=== PATIENT | female | born 1955 | race Two or more races ===

== ENCOUNTER 2024-09-25 14:11 | Inpatient (IN) | payer OTHER ==
[~2024-09-25] VITALS: Ht 177.8 cm; Wt 61.8 kg
--- NOTE | 2024-09-25 14:31 | ED.PDOC ---
HPI Comments HPI: This is a 68 year old female presenting to the ED with chief complaint of generalized weakness and syncope. Patient reports that she has been experiencing generalized weakness for the past few days, however, last night she experience associated nausea, cold sweats, and a syncopal episode while sitting. Patient relays that she did not fall when she was unconscious for a few minutes. Patient states she received a call from Dr[facility] regarding recent lab work dr holloway a week ago. Patient notes she was told her Sodium was at 121 and advised to come to the ED for further evaluation. Patient denies any chest pain, SOB, dizziness, N/V/D, abdominal pain, or fever. Initial Vitals BP: 176/52 HR: 58 RR: 16 O2: 97% Temp: 98F Past Medical History: HTN Past Surgical History: C-Spine surgery Social History: Denies ETOH, smoking, and drug use. Medications: Amlodipine Allergies: NKDA HPI: Poor Historian. REVIEW OF SYSTEMS: CONSTITUTIONAL: Denies acute: fever, diaphoresis, chills, HEAD: Denies acute: headache, photophobia Eyes: Denies acute: Double vision, vision loss, eye pain, eye discharge. EARS: Denies acute: tinnitus, hearing loss, ear discharge, ear pain, THROAT: Denies acute: sore throat, swelling, difficulty swallowing , pain with swallowing, change in voice. NECK: Denies acute: neck pain, neck swelling, stiff neck. HEART: Denies acute : chest pain, palpitations, LUNGS: Denies acute: SOB, wheezing, cough, hemoptysis ABDOMEN: Denies acute: abdominal pain, Vomiting, diarrhea, melena , hematemesis, hematochezia SKIN: Denies acute: rash, redness, lesions, itchiness. EXTREMITIES: Denies acute: calf pain, numbness, tingling, weakness, denies pain in extremity. Denies acute: Low back pain. Neuro: Denies acute: focal neurological deficit, motor or sensory focal neurological deficit, tremors, seizure like activity, confusion, change in mental status, loss of bowel or bladder function, cauda equina like symptoms. : Denies acute: dysuria, hematuria, flank pain, increase in urinary frequency. PSYCH: Denies acute: hallucination, suicidal ideation, homicidal ideation. FEMALE: Denies acute: abnormal vaginal bleeding, foul odor, unusual discharge. PHYSICAL EXAM: General: -----[id number]---acute distress, awake and alert. Head: normocephalic, atraumatic. Neck: supple, trachea is midline, no swelling. Throat: Normal phonation. Eyes:, no erythema, no purulent discharge, no proptosis, no icterus. Heart: regular rate, regular rhythm, no significant murmur appreciated. Lungs: no apparent respiratory distress, Able to speak in full sentences. No wheezing, no rhonchi, no crackles. No stridors Clear to auscultation bilaterally. Abdomen: non tender to palpation, non distended, soft, no guarding, no rebound, + bowel sounds. Neuro: Awake, Alert, oriented to name, self, situation, follows commands GCS=15. Speech is normal. Skin: no petechia, no purpura, no cyanosis, non-pale, not jaundice. Lower extremities: --no - Pitting edema no deformity, no focal swelling, no calf TTP. Makes eye contact. moves all four extremities. Face: no apparent facial droop. Ambulating in the ED independently. ED COURSE: Time Seen by MD: 14:28 Reviewed Notes: Medications, Allergies Allergies: Coded Allergies: Iodine (Verified Allergy, Mild, 09/25/24) Penicillins (Verified Allergy, Mild, 09/25/24) Home Meds Active Scripts Furosemide (Furosemide) 20 Mg Tab, 20 MG PO DAILY for 30 Days, #30 TAB Prov:TIP AGOSTO Evan ENGRAVING SUPERVISOR 09/28/24 Sodium Chloride (SODIUM CHLORIDE) 1 Gm Tab, 1 GM PO DAILY for 30 Days, #30 TAB Prov:TIP AGOSTO Evan ENGRAVING SUPERVISOR 09/28/24 Carvedilol (COREG) 3.125 Mg Tab, 3.125 MG PO BID for 30 Days, #60 TAB Prov:TIP AGOSTO Evan ENGRAVING SUPERVISOR 09/28/24 Reported Medications Mirtazapine (REMERON) 30 Mg Tab, 10 MG OR QPM, TAB 09/26/24 Quetiapine Fumerate (QUETIAPINE FUMARATE) 25 Mg Tab, 1 TAB PO QHSP PRN for insomnia 09/25/24 Cyanocobalamin (Vitamin B-12) 1,000 Mcg Tab, 1 TAB PO DAILY 09/25/24 Gabapentin (Gabapentin) 300 Mg Cap, 1 CAP PO BIDPRN PRN for pain 09/25/24 Folic Acid (Folic Acid) 1 Mg Tab, 1 TAB PO DAILY 09/25/24 Sacubitril-Valsartan (Entresto 97-103 mg) 1 Tab Tab, 1 TAB PO BID 09/25/24 Amlodipine Besylate (Amlodipine Besylate) 5 Mg Tab, 1 TAB PO DAILY 09/25/24 Discontinued Reported Medications Hydrochlorothiazide (Hydrochlorothiazide) 12.5 Mg Cap, 1 CAP PO DAILY for blood pressure 09/25/24 Carvedilol (Carvedilol) 12.5 Mg Tab, 1 TAB PO BID 09/25/24 Information Source: Patient Mode of Arrival: Ambulatory EKG EKG : Pulse Rate (adult): 59 [place]: Normal Cardiac Rhythm: NSR Block: None Hypertrophy: None ST: Normal Comments T-Wave inversion noted to V1, V2, and V3 Was a procedure done? Was a procedure done?: No CP Differential Dx Differential Diagnosis: Other, N/A Comment Includes but not limited to thyroid disease, encephalopathy, electrolyte abnormality, sepsis, infection, intracranial pathology, drug adverse effects, arrhythmia, kidney insufficiency, ACS, CVA, malignancy, anemia X-Ray, Labs, Meds, VS Vital Signs Date Time Temp Pulse Resp B/P (MAP) Pulse Ox O2 Delivery O2 Flow Rate FiO2 09/25/24 16:29 98.9 52 14 148/37 (74) 96 98.9 09/25/24 16:29 52 14 96 Room Air* 0 21 09/25/24 16:28 55 09/25/24 14:41 59 09/25/24 14:37 59 09/25/24 14:30 98.0 58 16 176/52 (93) 97 98.0 Lab Test 09/25/24 15:57 09/25/24 14:50 09/25/24 14:30 Range/Units Troponin I High Sensitivity 13 7 </=34 ng/L White Blood Count 6.4 4.4-10.8 10^3/uL Red Blood Count 4.43 4.0-5.20 10^6/uL Hemoglobin 14.1 12.2-16.2 g/dL Hematocrit 41.0 36.0-46.0 % Mean Corpuscular Volume 92.4 80.0-100.0 fL Mean Corpuscular Hemoglobin 31.9 28.0-32.0 pg Mean Corpuscular Hemoglobin Concent 34.5 32.0-36.0 g/dL Red Cell Distribution Width 13.6 11.8-14.3 % Platelet Count 247 140-450 10^3/uL Mean Platelet Volume 7.4 6.9-10.8 fL Neutrophils (%) (Auto) 71.4 37.0-80.0 % Lymphocytes (%) (Auto) 17.8 10.0-50.0 % Monocytes (%) (Auto) 8.7 0.0-12.0 % Eosinophils (%) (Auto) 1.6 0.0-7.0 % Basophils (%) (Auto) 0.5 0.0-2.0 % Neutrophils # (Auto) 4.6 1.6-8.6 10 ^3/uL Lymphocytes # (Auto) 1.1 0.4-5.4 10 ^3/uL Monocytes # (Auto) 0.6 0-1.3 10 ^3/uL Eosinophils # (Auto) 0.1 0-0.8 10 ^3/uL Basophils # (Auto) 0 0-0.2 10 ^3/uL Nucleated Red Blood Cells 0.0 % Sodium Level 114 *L 136-145 mmol/L Potassium Level 3.9 3.5-5.1 mmol/L Chloride Level 81 L 98-107 mmol/L Carbon Dioxide Level 16 L 20-31 mmol/L Anion Gap 17 H 5-15 Blood Urea Nitrogen 6 L 9-23 mg/dL Creatinine 0.57 0.550-1.02 mg/dL Glomerular Filtration Rate Calc 100 >90 mL/min BUN/Creatinine Ratio 10.5 10.0-20.0 Serum Glucose 110 H 74-106 mg/dL Lactic Acid Level 2.7 *H 0.4-2.0 mmol/L Calcium Level 9.6 8.7-10.4 mg/dL Magnesium Level 2.1 1.6-2.6 mg/dL Total Bilirubin 0.6 0.2-1.0 mg/dL Aspartate Amino Transferase (AST) 25 0-34 U/L Alanine Aminotransferase (ALT) 14 7-40 U/L Alkaline Phosphatase 111 46-116 U/L Total Protein 8.0 5.7-8.2 g/dL Albumin 5.0 H 3.2-4.8 g/dL Urine Color Colorless Yellow Urine Clarity Clear Clear Urine pH 6.5 5.0-9.0 Urine Specific [place] 1.003 1.001-1.035 Urine Protein Trace H Negative Urine Ketones Negative Negative Urine Blood Negative Negative /uL Urine Nitrite Negative Negative Urine Bilirubin Negative Negative Urine Urobilinogen Normal Negative mg/dL Urine Leukocyte Esterase Negative Negative /uL Urine RBC <1 0 - 4 /hpf Urine Microscopic WBC 2 0-5 /HPF Urine Squamous Epithelial Cells None seen <5 /hpf Urine Bacteria Few H None Seen /hpf Urine Glucose Normal Normal mg/dL Time of 1ST Reevaluation: 15:28 Reevaluation 1ST: Unchanged Patient Education/Counseling: Diagnosis, Treatment Family Education/Counseling: No Family Present Comments Patient presented with the above HPI.--generalized weakness----workup was initiated. patient was found with the above mentioned diagnosis. the following medications were ordered: please refer to order lists of meds and tests obtained by myself Dr. Jacobson. Patient ED course and VS have been stabilized. Patient has been reassessed in the ED and remained in a stable condition. Pertinent incidental findings were discussed with the patient and/or family. Patient/family voices understanding and is agreeable with plan. Patient has been observed in the ED adequate length of time to insure improvement/stability. Escalation of care considered: Consideration of escalation to observation or admission Patient found with severe hyponatremia. Patient was admitted to ICU. Patient was ADMITTED to the medicine team for further evaluation and treatment of their presentation. All the reports of any imaging studies that were ordered by myself were reviewed by myself. Departure 1 Departure Time of Disposition: 14:34 Impression: Primary Impression: Syncope and collapse Additional Impressions: Hyponatremia Generalized weakness Abnormal finding on CT scan Disposition: ADMITTED INPATIENT Admit to: Tele Condition: Guarded e-Prescriptions Furosemide (Furosemide) 20 Mg Tab 20 MG PO DAILY for 30 Days, #30 TAB Prov: TIP AGOSTO ENGRAVING SUPERVISOR 09/28/24 Sodium Chloride (SODIUM CHLORIDE) 1 Gm Tab 1 GM PO DAILY for 30 Days, #30 TAB Prov: TIP AGOSTO ENGRAVING SUPERVISOR 09/28/24 Carvedilol (COREG) 3.125 Mg Tab 3.125 MG PO BID for 30 Days, #60 TAB Prov: TIP AGOSTO ENGRAVING SUPERVISOR 09/28/24 Discharged With: Self Critical Care Note Critical Care Time?: Yes (55 min-critical care time only) Heart Score Heart Score: Heart Score Response (Comments) Value History Moderate Suspicious 1 EKG Normal 0 Age >65 2 Risk Factors 1 or 2 risk factors 1 Troponin Normal limit 0 Total 4 I personally scribed for AMBROCIO JACOBSON DO ([email or web address]) on 09/25/24 at 14:31. Electronically submitted by Royal Foy ([email or web address]). I personally scribed for AMBROCIO JACOBSON DO ([email or web address]) on 09/25/24 at 14:39. Electronically submitted by Royal Foy ([email or web address]). I personally scribed for AMBROCIO JACOBSON DO ([email or web address]) on 09/25/24 at 14:41. Electronically submitted by Royal Foy ([email or web address]). AMBROCIO JACOBSON DO Sep 25, 2024 14:31
[2024-09-25] MEDS: SODIUM CHLORIDE 0.9% 1,000 ML IV ONE ×2 (14:45→16:52)
[2024-09-25 15:09] LABS: Basophils # (auto) 0 10 ^3/uL (0-0.2); Basophils % (auto) 0.5 % (0.0-2.0); Eosinophils # (auto) 0.1 10 ^3/uL (0-0.8); Eosinophils % (auto) 1.6 % (0.0-7.0); Hemoglobin 14.1 g/dL (12.2-16.2); Lymphocytes # (auto) 1.1 10 ^3/uL (0.4-5.4); Lymphocytes % (auto) 17.8 % (10.0-50.0); Mean Corpuscular Hemoglobin 31.9 pg (28.0-32.0); Mean Corpuscular Hgb Conc. 34.5 g/dL (32.0-36.0); Mean Corpuscular Volume 92.4 fL (80.0-100.0); Monocytes # (auto) 0.6 10 ^3/uL (0-1.3); Monocytes % (auto) 8.7 % (0.0-12.0); Neutrophils # (auto) 4.6 10 ^3/uL (1.6-8.6); Neutrophils % (auto) 71.4 % (37.0-80.0); Platelet Count (auto) 247 10^3/uL (140-450); Red Blood Cells 4.43 10^6/uL (4.0-5.20); Red Cell Distribution Width 13.6 % (11.8-14.3); White Blood Cell 6.4 10^3/uL (4.4-10.8)
--- NOTE | 2024-09-25 15:28 | DVH ---
EXAM: XR Chest, 1 View CLINICAL INDICATION: Syncope and collapse TECHNIQUE: Frontal view of the chest. COMPARISON: None FINDINGS: LUNGS AND PLEURAL SPACES: Unremarkable. No consolidation. No pneumothorax. HEART: Unremarkable. No cardiomegaly. MEDIASTINUM: Unremarkable. Normal mediastinal contour. BONES/JOINTS: Unremarkable. No acute fracture. OTHER FINDINGS: . IMPRESSION: No acute cardiopulmonary process.
[2024-09-25 15:29] LABS: Lactic Acid w/Reflex 2.7 mmol/L (0.4-2.0)
--- NOTE | 2024-09-25 15:32 | DVH ---
CT HEAD WITHOUT CONTRAST Indication: Syncope and collapse EXAM DATE: 09/25/2024 02:59 PM COMPARISON: None TECHNIQUE: CT of the head without intravenous contrast. RADIATION DOSE: CTDIvol: 56 mGy, DLP: 958.5 mGy*cm FINDINGS: There is no intracranial hemorrhage. There is no extra-axial fluid, mass, mass effect or midline shif t. The ventricles are midline and normal in size. Basilar cisterns are patent. Mild periventricular a nd subcortical white chronic microvascular ischemic changes central pontine infarct that appears suba cute to old measuring 9 mm. Mild global cerebral volume loss The paranasal sinuses and mastoids are well-pneumatized. Imaged portion of the orbits are unremarkabl e. IMPRESSION: 1. No intracranial hemorrhage or mass effect. 2. 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 Recommend MRI brain to further evaluate. 3. Mild chronic microvascular ischemic changes. 4. Mild global cerebral volume loss.
[2024-09-25 16:01] LABS: Alanine Aminotransferase 14 U/L (7-40); Alkaline Phosphatase 111 U/L (46-116); Anion Gap 17 (5-15); Aspartate Aminotransferase 25 U/L (0-34); BUN/Creatinine Ratio 10.5 (10.0-20.0); Calcium 9.6 mg/dL (8.7-10.4); Magnesium 2.1 mg/dL (1.6-2.6); Potassium 3.9 mmol/L (3.5-5.1)
[2024-09-25 16:02] LABS: Bilirubin, Total 0.6 mg/dL (0.2-1.0); Blood Urea Nitrogen 6 mg/dL (9-23); Carbon Dioxide 16 mmol/L (20-31); Chloride 81 mmol/L (98-107); Glucose 110 mg/dL (74-106)
[2024-09-25 16:04] LABS: Sodium 114 mmol/L (136-145)
[2024-09-25 16:29] VITALS: PULSE 52; RESP 14; O2SAT 96
[2024-09-25 17:25] LABS: Urine Bacteria FEW /hpf (None Seen); Urine Blood Negative /uL (Negative); Urine Clarity Clear (Clear); Urine Color Colorless (Yellow); Urine Protein, UAD TRACE (Negative); Urine Specific Gravity 1.003 (1.001-1.035); Urine Squamous Epithelial Cell None Seen /hpf (<5); Urine Urobilinogen Normal (Negative); Urine WBC 2 /HPF (0-5); Urine pH 6.5 (5.0-9.0)
[2024-09-25] MEDS ORDERED: ONDANSETRON HCL 4 MG/2 ML VIAL IV PRN (18:00)
[2024-09-25] MEDS ORDERED: NITROGLYCERIN 0.4 MG SL TAB SL PRN (18:00)
[2024-09-25] MEDS ORDERED: MORPHINE SULFATE INJ 2 MG/ml SYRG IV PRN (18:00)
[2024-09-25] MEDS ORDERED: ACETAMINOPHEN 325 MG TAB PO PRN (18:00)
[2024-09-25] MEDS ORDERED: hydrALAZINE HCL 20 MG/ML VL IV PRN (18:00)
[2024-09-25 18:45] LABS: Potassium 4.7 mmol/L (3.5-5.1)
[2024-09-25 18:46] LABS: Anion Gap 11 (5-15); Calcium 9.3 mg/dL (8.7-10.4); Carbon Dioxide 21 mmol/L (20-31)
[2024-09-25 18:51] LABS: Glucose 106 mg/dL (74-106)
[2024-09-25 18:54] LABS: Blood Urea Nitrogen 7 mg/dL (9-23); Chloride 89 mmol/L (98-107); Sodium 121 mmol/L (136-145)
[2024-09-25] MEDS: ASPirin-EC 325mg tab PO ONE (19:07)
[2024-09-25 19:29] VITALS: BP 130/40; PULSE 53; RESP 16; TEMP 98.1; O2SAT 97
[2024-09-25 20:07] VITALS: PULSE 52; RESP 16; O2SAT 97
[2024-09-25 20:40] VITALS: PULSE 53; RESP 18; O2SAT 96
[2024-09-25 21:24] VITALS: BP 127/41; PULSE 54; RESP 17; TEMP 98; O2SAT 100
[2024-09-25] MEDS ORDERED: CYAN100042 PO (21:34)
[2024-09-25] MEDS ORDERED: SACU1TAB4 PO (21:34)
[2024-09-25] MEDS ORDERED: CARV12.544 PO (21:34)
[2024-09-25] MEDS ORDERED: AMLO1TAB22 PO (21:34)
[2024-09-25] MEDS ORDERED: GABA-1250 PO (21:34)
[2024-09-25] MEDS ORDERED: QUET1TAB11 PO (21:34)
[2024-09-25] MEDS ORDERED: HYDR12.59 PO (21:34)
[2024-09-25] MEDS ORDERED: FOLI-119 PO (21:34)
[2024-09-26] VITALS (9 sets, daily range): BP systolic 102–144; BP diastolic 38–66; PULSE 46–55; RESP 16–19; TEMP 97.6–98.7; O2SAT 2–99
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
[2024-09-26 07:18] LABS: Basophils # (auto) 0 10 ^3/uL (0-0.2); Basophils % (auto) 1.1 % (0.0-2.0); Eosinophils # (auto) 0.1 10 ^3/uL (0-0.8); Eosinophils % (auto) 2.2 % (0.0-7.0); Hematocrit 35.5 % (36.0-46.0); Hemoglobin 12.4 g/dL (12.2-16.2); Lymphocytes # (auto) 0.9 10 ^3/uL (0.4-5.4); Mean Corpuscular Hemoglobin 31.9 pg (28.0-32.0); Mean Corpuscular Hgb Conc. 34.8 g/dL (32.0-36.0); Mean Corpuscular Volume 91.5 fL (80.0-100.0); Monocytes # (auto) 0.7 10 ^3/uL (0-1.3); Monocytes % (auto) 16.3 % (0.0-12.0); Neutrophils # (auto) 2.4 10 ^3/uL (1.6-8.6); Neutrophils % (auto) 57.4 % (37.0-80.0); Nucleated Red Blood Cells % 0.2 %; Platelet Count (auto) 263 10^3/uL (140-450); Red Blood Cells 3.88 10^6/uL (4.0-5.20); Red Cell Distribution Width 13.6 % (11.8-14.3); White Blood Cell 4.1 10^3/uL (4.4-10.8)
[2024-09-26 07:28] LABS: Alkaline Phosphatase 88 U/L (46-116); Aspartate Aminotransferase 18 U/L (<34); Bilirubin, Total 0.6 mg/dL (0.2-1.0); Carbon Dioxide 23 mmol/L (20-31); Potassium 3.7 mmol/L (3.5-5.1); Total Protein 6.3 g/dL (5.7-8.2)
[2024-09-26 07:35] LABS: Alanine Aminotransferase 9 U/L (7-40); Anion Gap 8 (5-15); Calcium 8.6 mg/dL (8.7-10.4); Chloride 92 mmol/L (98-107); Glucose 108 mg/dL (74-106); Sodium 123 mmol/L (136-145)
[2024-09-26 07:36] LABS: BUN/Creatinine Ratio 11.3 (10.0-20.0); Blood Urea Nitrogen 6 mg/dL (9-23)
[2024-09-26 07:58] LABS: INR 1.07 (0.9-1.15); Partial Thromboplastin Time 29.9 SEC (24.5-34.5); Prothrombin Time 11.3 sec (9.3-11.8)
[2024-09-26] MEDS ORDERED: SODIUM CHLORIDE 0.9% 1,000 ML IV SCH (08:00)
[2024-09-26 08:28] LABS: Erythrocyte Sedimentation Rate 4 mm/hr (0-20)
[2024-09-26] MEDS: ENOXAPARIN SOD 40 MG/0.4 ML SYRINGE SC SCH (09:31)
[2024-09-26] MEDS: ASPirin 81 mg TAB PO SCH (09:31)
[2024-09-26] MEDS ORDERED: MIRT-94 OR (09:37)
--- NOTE | 2024-09-26 11:00 | DVHPN2 ---
Progress Note - Dictate Date Seen: Sep 26, 2024 Medical Necessity Reason Pt with a Central, PICC or Fol: No vital signs Vital Sign Date Time Temp Pulse Resp B/P (MAP) Pulse Ox O2 Delivery O2 Flow Rate FiO2 09/26/24 09:00 97.6 55 18 144/45 (78) 99 97.6 09/26/24 08:00 Nasal Cannula* 2 28 Total Intake and Output 09/25/24 09/25/24 09/26/24 15:00 23:00 07:00 Intake Total 2000 ml 400 ml Balance 2000 ml 400 ml medications Current Medications Medications Dose Ordered Sig/Cathy Route Start Time Stop Time Status Last Admin Dose Admin Acetaminophen/ Hydrocodone Bitart 1 tab Q4HP PRN PO 09/25/24 18:00 Ondansetron HCl 4 mg Q4HP PRN IV 09/25/24 18:00 Acetaminophen 650 mg Q6HP PRN PO 09/25/24 18:00 Enoxaparin Sodium 40 mg DAILY SC 09/26/24 10:00 09/26/24 09:31 40 MG Nitroglycerin 0.4 mg Q5MINP PRN SL 09/25/24 18:00 Morphine Sulfate 2 mg Q30M PRN IV 09/25/24 18:00 Hydralazine HCl 10 mg Q6HP PRN IV 09/25/24 18:00 Aspirin 81 mg DAILY PO 09/26/24 10:00 09/26/24 09:31 81 MG Atorvastatin Calcium 40 mg HS PO 09/26/24 22:00 objective General Appearance: alert, no distress HEENT: EOMI, PERRLA, normal external inspect of ears, no icterus, no nasal drainage Neck: no carotid bruit, no jugular venous distention (JVD), no lymphadenopathy Chest: normal thorax Respiratory: clear to auscultation, normal air movement Cardiovascular: regular rate and rhythm, no diastolic murmur, no jugular venous distention (JVD), no rub, no systolic murmur Abdominal: soft, no hepatomegaly, no mass, no splenomegaly, no tenderness Genitourinary: grossly normal external Musculoskeletal: no joint tenderness, no swelling Extremities: normal pulses, no calf tenderness, no clubbing, no cyanosis, no edema Skin: no bruising, no jaundice, no rash Neurological: alert, No focal deficit laboratory and microbiology Laboratory Tests 09/26/24 05:35 Test 09/26/24 05:35 Range/Units Serum Glucose 108 H 74-106 mg/dL Problem List 1. Hyponatremia Monitor, nephrology consult, lipid panel, daily labs 2. Syncope Monitor, cardiology consult, echocardiogram 3. Possible CVA Monitor, MRI brain, neurology consult 4. Bradycardia Monitor, fluid resuscitation 5. Benign essential HTN Monitor Assessment/Plan Subjective: Patient is awake and alert. Objective: Patient was admitted for hyponatremia. Patient takes HCTZ outpatient. Patient also had a syncopal episode; however, seizure cannot be ruled out. Patient states her describes it as her being unresponsive with her eyes rolled back. Head CT imaging showed possible CVA. MRI is currently pending. Patient also had noted bradycardia findings. Plan: Continue current treatment. Cardiology and nephrology consults. Hyponatremia is improving, most likely related to HCTZ. Neurology consult for syncope evaluation. Rule out CVA. Plan discussed with: Patient, Other TIP AGOSTO NP Sep 26, 2024 11:00
--- NOTE | 2024-09-26 11:01 | DVHHP2 ---
Admitting Diagnosis: Generalized weakness History of Present Illness 68 yo female patient c/o generalized weakness x a couple days and syncope. Patient reports having nausea and chills last night before syncope. Patient also reports that she had lab work done last week and received a call from her doctor tell her to report to the ER due to having a sodium of 121. While in the emergency department the patient was evaluated by the provider, As per provider: Labs, vital signs, and imagining monitored. Patient will be admitted for further evaluation and treatment. I discussed admission with the patient/family and is in agreement to treatment plan. Patient Family History: FH: brain cancer G8 SISTER Hypertension G8 MOTHER G8 FATHER Allergies: Coded Allergies: Iodine (Verified Allergy, Mild, 09/25/24) Penicillins (Verified Allergy, Mild, 09/25/24) Home Meds Reported Medications Mirtazapine (REMERON) 30 Mg Tab, 10 MG OR QPM, TAB 09/26/24 Quetiapine Fumerate (QUETIAPINE FUMARATE) 25 Mg Tab, 1 TAB PO QHSP PRN for insomnia 09/25/24 Cyanocobalamin (Vitamin B-12) 1,000 Mcg Tab, 1 TAB PO DAILY 09/25/24 Gabapentin (Gabapentin) 300 Mg Cap, 1 CAP PO BIDPRN PRN for pain 09/25/24 Hydrochlorothiazide (Hydrochlorothiazide) 12.5 Mg Cap, 1 CAP PO DAILY for blood pressure 09/25/24 Folic Acid (Folic Acid) 1 Mg Tab, 1 TAB PO DAILY 09/25/24 Carvedilol (Carvedilol) 12.5 Mg Tab, 1 TAB PO BID 09/25/24 Sacubitril-Valsartan (Entresto 97-103 mg) 1 Tab Tab, 1 TAB PO BID 09/25/24 Amlodipine Besylate (Amlodipine Besylate) 5 Mg Tab, 1 TAB PO DAILY 09/25/24 Current Medications Current Medications Medications (Trade) Dose Ordered Sig/Cathy Route PRN Reason Start Time Stop Time Status Last Admin Acetaminophen/ Hydrocodone Bitart ([place] 5/325MG Tab) 1 tab Q4HP PRN PO MODERATE PAIN (4-6 PAIN SCALE) 09/25/24 18:00 Ondansetron HCl (Zofran) 4 mg Q4HP PRN IV NAUSEA / VOMITING 09/25/24 18:00 Acetaminophen (Tylenol Tablet) 650 mg Q6HP PRN PO PAIN SCALE 1-3 OR TEMP>100.4 09/25/24 18:00 Enoxaparin Sodium (Lovenox) 40 mg DAILY SC 09/26/24 10:00 09/26/24 09:31 Nitroglycerin (Ntrostat Sublingual) 0.4 mg Q5MINP PRN SL FOR CHEST PAIN 09/25/24 18:00 Morphine Sulfate 2 mg Q30M PRN IV FOR CHEST PAIN 09/25/24 18:00 Hydralazine HCl (Apresoline Injection) 10 mg Q6HP PRN IV SBP>150 09/25/24 18:00 Aspirin 81 mg DAILY PO 09/26/24 10:00 09/26/24 09:31 Atorvastatin Calcium (Lipitor) 40 mg HS PO 09/26/24 22:00 Sodium Chloride 1,000 ml @ 80 mls/hr [id number] IV 09/26/24 08:00 09/26/24 07:45 DC Amlodipine Besylate (Norvasc Tablet) 5 mg DAILY PO 09/27/24 10:00 Carvedilol (Coreg Tablet) 12.5 mg BID PO 09/26/24 22:00 Gabapentin (Neurontin Capsule) 300 mg BIDPRN PRN PO pain 09/26/24 12:30 Mirtazapine (Remeron Tablet) 15 mg QPM PO 09/26/24 18:00 Quetiapine Fumarate (SEROquel TABLET) 25 mg QHSP PRN PO insomnia 09/26/24 12:30 Folic Acid 1 mg DAILY PO 09/27/24 10:00 09/26/24 17:33 DC Patient Own Medication 1 tab BID PO 09/26/24 22:00 Thiamine HCl 100 mg DAILY IV 09/27/24 10:00 Folic Acid 1 mg/ Dextrose 50.2 ml @ 200.8 mls/ hr DAILY INJ 09/27/24 10:00 Review of Systems Constitutional: denies chills, denies fever, denies malaise Eyes: denies eye pain, denies vision change ENT: denies ear pain, denies headache, denies nasal congestion, denies painful swallowing, denies voice change Cardiovascular: denies chest pain, denies edema, denies orthopnea, denies palpitations, denies paroxysmal nocturnal dyspnea Respiratory: denies cough, denies shortness of breath Gastrointestinal: denies constipation, denies diarrhea, denies nausea, denies vomiting Genitourinary: denies dysuria, denies frequent urination, denies urethral discharge Musculoskeletal: denies back pain, denies joint pain, denies muscle pain Skin: denies bruising, denies itching, denies rash Neurological: denies focal weakness, denies headache, denies sensory changes Psychiatric: denies anxiety, denies depression Endocrine: denies polydipsia, denies polyuria Hematologic/Lymphatic: denies easy bleeding, denies easy bruising, denies enlarged lymph nodes Allergic/Immunologic: denies allergy, denies hives Vital Signs Vital Signs Date Time Temp Pulse Resp B/P (MAP) Pulse Ox O2 Delivery O2 Flow Rate FiO2 09/26/24 17:13 98.7 50 19 125/39 (67) 96 98.7 09/26/24 08:00 Nasal Cannula* 2 28 Physical Exam General Appearance: alert, no distress HEENT: EOMI, PERRLA, normal external inspect of ears, no icterus, no nasal drainage Neck: no carotid bruit, no jugular venous distention (JVD), no lymphadenopathy Chest: normal thorax Respiratory: clear to auscultation, normal air movement Cardiovascular: regular rate and rhythm, no diastolic murmur, no jugular venous distention (JVD), no rub, no systolic murmur Abdominal: soft, no hepatomegaly, no mass, no splenomegaly, no tenderness Genitourinary: grossly normal external Musculoskeletal: no joint tenderness, no swelling Extremities: normal pulses, no calf tenderness, no clubbing, no cyanosis, no edema Skin: no bruising, no jaundice, no rash Neurological: alert, No focal deficit Results Labs Test 09/26/24 05:35 09/26/24 00:00 09/25/24 18:15 09/25/24 14:50 Range/Units White Blood Count 4.1 #L 4.4-10.8 10^3/uL Red Blood Count 3.88 L 4.0-5.20 10^6/uL Hemoglobin 12.4 12.2-16.2 g/dL Hematocrit 35.5 #L 36.0-46.0 % Mean Corpuscular Volume 91.5 80.0-100.0 fL Mean Corpuscular Hemoglobin 31.9 28.0-32.0 pg Mean Corpuscular Hemoglobin Concent 34.8 32.0-36.0 g/dL Red Cell Distribution Width 13.6 11.8-14.3 % Platelet Count 263 140-450 10^3/uL Mean Platelet Volume 7.7 6.9-10.8 fL Neutrophils (%) (Auto) 57.4 37.0-80.0 % Lymphocytes (%) (Auto) 23.0 10.0-50.0 % Monocytes (%) (Auto) 16.3 H 0.0-12.0 % Eosinophils (%) (Auto) 2.2 0.0-7.0 % Basophils (%) (Auto) 1.1 0.0-2.0 % Neutrophils # (Auto) 2.4 1.6-8.6 10 ^3/uL Lymphocytes # (Auto) 0.9 0.4-5.4 10 ^3/uL Monocytes # (Auto) 0.7 0-1.3 10 ^3/uL Eosinophils # (Auto) 0.1 0-0.8 10 ^3/uL Basophils # (Auto) 0 0-0.2 10 ^3/uL Nucleated Red Blood Cells 0.2 % Erythrocyte Sedimentation Rate 4 0-20 mm/hr Prothrombin Time 11.3 9.3-11.8 sec Prothrombin Time INR 1.07 0.9-1.15 Activated Partial Thromboplast Time 29.9 24.5-34.5 SEC Sodium Level 123 L 136-145 mmol/L Potassium Level 3.7 3.5-5.1 mmol/L Chloride Level 92 L 98-107 mmol/L Carbon Dioxide Level 23 20-31 mmol/L Anion Gap 8 5-15 Blood Urea Nitrogen 6 L 9-23 mg/dL Creatinine 0.53 L 0.550-1.02 mg/dL Glomerular Filtration Rate Calc 101 >90 mL/min BUN/Creatinine Ratio 11.3 10.0-20.0 Serum Glucose 108 H 74-106 mg/dL Serum Osmolality 264 L 278-298 mOsm/kg Calcium Level 8.6 L 8.7-10.4 mg/dL Total Bilirubin 0.6 0.2-1.0 mg/dL Aspartate Amino Transferase (AST) 18 <34 U/L Alanine Aminotransferase (ALT) 9 7-40 U/L Alkaline Phosphatase 88 46-116 U/L C-Reactive Protein High Sensitivity 0.47 <1.0 mg/dL Total Protein 6.3 5.7-8.2 g/dL Albumin 4.0 3.2-4.8 g/dL Triglycerides Level 37 < 150 mg/dL Cholesterol Level 163 < 200 mg/dL LDL Cholesterol 29 < 100 mg/dL HDL Cholesterol 94 H 40-59 mg/dL Thyroid Stimulating Hormone (TSH) 1.16 0.55-4.78 uIU/mL Urine Osmolality 368 mOsm/kg Urine Creatinine 67.20 30.0-125.0 mg/dL Urine Sodium 39 L 40-220 mmol/L Lactic Acid Level 1.2 0.4-2.0 mmol/L Troponin I High Sensitivity 17 </=34 ng/L Magnesium Level 2.1 1.6-2.6 mg/dL Test 09/25/24 14:30 Range/Units Urine Color Colorless Yellow Urine Clarity Clear Clear Urine pH 6.5 5.0-9.0 Urine Specific [place] 1.003 1.001-1.035 Urine Protein Trace H Negative Urine Ketones Negative Negative Urine Blood Negative Negative /uL Urine Nitrite Negative Negative Urine Bilirubin Negative Negative Urine Urobilinogen Normal Negative mg/dL Urine Leukocyte Esterase Negative Negative /uL Urine RBC <1 0 - 4 /hpf Urine Microscopic WBC 2 0-5 /HPF Urine Squamous Epithelial Cells None seen <5 /hpf Urine Bacteria Few H None Seen /hpf Urine Glucose Normal Normal mg/dL Plan 1. Hyponatremia Monitor, nephrology consult, lipid panel, daily labs 2. Syncope Monitor, cardiology consult, echocardiogram 3. Possible CVA Monitor, MRI brain, neurology consult 4. Bradycardia Monitor, fluid resuscitation 5. Benign essential HTN Monitor Plan discussed with: Patient, Other TRINYTIPBHAVYA Gordon NP Sep 26, 2024 11:01
--- NOTE | 2024-09-26 11:45 | DVHINCON2 ---
Date of service: Sep 26, 2024 Reason for Consultation Hyponatremia History of Present Illness 68-year-old female past medical history of hypertension and degenerative disc disease was sent to the hospital by primary medical doctor due to abnormal serum sodium lab. Per at bedside patient had near syncopal episode with near loss of consciousness. At presentation patient noted to have a serum sodium of 114. Patient is status post IV fluid now currently serum sodium is 123. Patient reports only medication for blood pressure includes amlodipine and hydrochlorothiazide. Patient denies any previous cardiac history, denies any diagnosis of congestive heart failure however does report occasionally has swelling in her legs. Medication reconciliation does show SSRI, Entresto, hydrochlorothiazide Allergies: Coded Allergies: Iodine (Verified Allergy, Mild, 09/25/24) Penicillins (Verified Allergy, Mild, 09/25/24) Home Meds Reported Medications Mirtazapine (REMERON) 30 Mg Tab, 10 MG OR QPM, TAB 09/26/24 Quetiapine Fumerate (QUETIAPINE FUMARATE) 25 Mg Tab, 1 TAB PO QHSP PRN for insomnia 09/25/24 Cyanocobalamin (Vitamin B-12) 1,000 Mcg Tab, 1 TAB PO DAILY 09/25/24 Gabapentin (Gabapentin) 300 Mg Cap, 1 CAP PO BIDPRN PRN for pain 09/25/24 Hydrochlorothiazide (Hydrochlorothiazide) 12.5 Mg Cap, 1 CAP PO DAILY for blood pressure 09/25/24 Folic Acid (Folic Acid) 1 Mg Tab, 1 TAB PO DAILY 09/25/24 Carvedilol (Carvedilol) 12.5 Mg Tab, 1 TAB PO BID 09/25/24 Sacubitril-Valsartan (Entresto 97-103 mg) 1 Tab Tab, 1 TAB PO BID 09/25/24 Amlodipine Besylate (Amlodipine Besylate) 5 Mg Tab, 1 TAB PO DAILY 09/25/24 Current Medications Current Medications Medications (Trade) Dose Ordered Sig/Cathy Route PRN Reason Start Time Stop Time Status Last Admin Acetaminophen/ Hydrocodone Bitart ([place] 5/325MG Tab) 1 tab Q4HP PRN PO MODERATE PAIN (4-6 PAIN SCALE) 09/25/24 18:00 Ondansetron HCl (Zofran) 4 mg Q4HP PRN IV NAUSEA / VOMITING 09/25/24 18:00 Acetaminophen (Tylenol Tablet) 650 mg Q6HP PRN PO PAIN SCALE 1-3 OR TEMP>100.4 09/25/24 18:00 Enoxaparin Sodium (Lovenox) 40 mg DAILY SC 09/26/24 10:00 09/26/24 09:31 Nitroglycerin (Ntrostat Sublingual) 0.4 mg Q5MINP PRN SL FOR CHEST PAIN 09/25/24 18:00 Morphine Sulfate 2 mg Q30M PRN IV FOR CHEST PAIN 09/25/24 18:00 Hydralazine HCl (Apresoline Injection) 10 mg Q6HP PRN IV SBP>150 09/25/24 18:00 Aspirin 81 mg DAILY PO 09/26/24 10:00 09/26/24 09:31 Atorvastatin Calcium (Lipitor) 40 mg HS PO 09/26/24 22:00 Sodium Chloride 1,000 ml @ 80 mls/hr [id number] IV 09/26/24 08:00 09/26/24 07:45 DC Family History: FH: brain cancer G8 SISTER Hypertension G8 MOTHER G8 FATHER Review of Systems Near syncopal episode H&P Exam Vital Signs/I&O Vital Sign Date Time Temp Pulse Resp B/P (MAP) Pulse Ox O2 Delivery O2 Flow Rate FiO2 09/26/24 09:00 97.6 55 18 144/45 (78) 99 97.6 09/26/24 08:00 Nasal Cannula* 2 28 Intake and Output 09/25/24 09/26/24 19:00 07:00 Intake Total 2000 ml 400 ml Balance 2000 ml 400 ml Intake Oral 400 ml IV Total 1000 ml Other 1000 ml # Voids 3 Physical Exam Frail elderly white female Not in overt distress Slow mildly slurred speech due to missing dentures Regular rhythm, bradycardia No murmur No pitting edema Abdomen is soft Labs/Diagnostic Data Labs/Diagnostic Data Laboratory Tests Test 09/26/24 05:35 09/25/24 18:15 09/25/24 15:57 09/25/24 14:50 Range/Units White Blood Count 4.1 #L 6.4 4.4-10.8 10^3/uL Red Blood Count 3.88 L 4.43 4.0-5.20 10^6/uL Hemoglobin 12.4 14.1 12.2-16.2 g/dL Hematocrit 35.5 #L 41.0 36.0-46.0 % Mean Corpuscular Volume 91.5 92.4 80.0-100.0 fL Mean Corpuscular Hemoglobin 31.9 31.9 28.0-32.0 pg Mean Corpuscular Hemoglobin Concent 34.8 34.5 32.0-36.0 g/dL Red Cell Distribution Width 13.6 13.6 11.8-14.3 % Platelet Count 263 247 140-450 10^3/uL Mean Platelet Volume 7.7 7.4 6.9-10.8 fL Neutrophils (%) (Auto) 57.4 71.4 37.0-80.0 % Lymphocytes (%) (Auto) 23.0 17.8 10.0-50.0 % Monocytes (%) (Auto) 16.3 H 8.7 0.0-12.0 % Eosinophils (%) (Auto) 2.2 1.6 0.0-7.0 % Basophils (%) (Auto) 1.1 0.5 0.0-2.0 % Neutrophils # (Auto) 2.4 4.6 1.6-8.6 10 ^3/uL Lymphocytes # (Auto) 0.9 1.1 0.4-5.4 10 ^3/uL Monocytes # (Auto) 0.7 0.6 0-1.3 10 ^3/uL Eosinophils # (Auto) 0.1 0.1 0-0.8 10 ^3/uL Basophils # (Auto) 0 0 0-0.2 10 ^3/uL Nucleated Red Blood Cells 0.2 0.0 % Erythrocyte Sedimentation Rate 4 0-20 mm/hr Prothrombin Time 11.3 9.3-11.8 sec Prothrombin Time INR 1.07 0.9-1.15 Activated Partial Thromboplast Time 29.9 24.5-34.5 SEC Sodium Level 123 L 121 #L 114 *L 136-145 mmol/L Potassium Level 3.7 4.7 3.9 3.5-5.1 mmol/L Chloride Level 92 L 89 L 81 L 98-107 mmol/L Carbon Dioxide Level 23 21 16 L 20-31 mmol/L Anion Gap 8 11 17 H 5-15 Blood Urea Nitrogen 6 L 7 L 6 L 9-23 mg/dL Creatinine 0.53 L 0.54 L 0.57 0.550-1.02 mg/dL Glomerular Filtration Rate Calc 101 101 100 >90 mL/min BUN/Creatinine Ratio 11.3 13.0 10.5 10.0-20.0 Serum Glucose 108 H 106 110 H 74-106 mg/dL Calcium Level 8.6 L 9.3 9.6 8.7-10.4 mg/dL Total Bilirubin 0.6 0.6 0.2-1.0 mg/dL Aspartate Amino Transferase (AST) 18 25 0-34 U/L Alanine Aminotransferase (ALT) 9 14 7-40 U/L Alkaline Phosphatase 88 111 46-116 U/L Total Protein 6.3 8.0 5.7-8.2 g/dL Albumin 4.0 5.0 H 3.2-4.8 g/dL Thyroid Stimulating Hormone (TSH) 1.16 0.55-4.78 uIU/mL Lactic Acid Level 1.2 2.7 *H 0.4-2.0 mmol/L Troponin I High Sensitivity 17 13 7 </=34 ng/L Magnesium Level 2.1 1.6-2.6 mg/dL Test 09/25/24 14:30 Range/Units Urine Color Colorless Yellow Urine Clarity Clear Clear Urine pH 6.5 5.0-9.0 Urine Specific [place] 1.003 1.001-1.035 Urine Protein Trace H Negative Urine Ketones Negative Negative Urine Blood Negative Negative /uL Urine Nitrite Negative Negative Urine Bilirubin Negative Negative Urine Urobilinogen Normal Negative mg/dL Urine Leukocyte Esterase Negative Negative /uL Urine RBC <1 0 - 4 /hpf Urine Microscopic WBC 2 0-5 /HPF Urine Squamous Epithelial Cells None seen <5 /hpf Urine Bacteria Few H None Seen /hpf Urine Glucose Normal Normal mg/dL Assessment 68-year-old female past medical history of hypertension presents to the hospital with a near syncopal episode was diagnosed with hyponatremia. Patient notably also has bradycardia with heart rate in the 50s. Clinically patient appears to be hypo to euvolemic. Hyponatremia History of hypertension Questionable history of congestive heart failure Hold further IV fluids to prevent sodium over-correction Obtain urine osmolarity, urine sodium, serum sodium, Encourage p.o. Cardiology Avoid hypotension No further use of thiazide diuretic in this patient recommend alternative agent s. Plan discussed with: Patient, Spouse FER GARCIA MD Sep 26, 2024 11:45
[2024-09-26 12:16] LABS: CRP High Sensitivity 0.47 mg/dL (<1.0)
[2024-09-26] MEDS ORDERED: GABAPENTIN 300 MG CAP PO PRN (12:30)
--- NOTE | 2024-09-26 12:38 | DVH ---
PROCEDURE: MRI BRAIN HEAD WO CONTRAST Indication: SYNCOPE COMPARISON: 09/25/2024 TECHNIQUE: Multiplanar multisequence images of the brain are obtained. FINDINGS: There is no abnormal diffusion restriction. Mild periventricular and subcortical white matter T2/FLAI R hyperintense changes. 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 Mild global cerebral volume loss. There is no in tracranial hemorrhage. No extra-axial fluid collection, mass effect or midline shift. The ventricles are midline and normal in size. The cisterns are patent. Normal intracranial flow voids are preserved . No abnormal susceptibility signal. The sinuses and mastoids are well pneumatized. The visualized orbits are unremarkable. Cervical fusio n hardware, incompletely characterized. IMPRESSION: 1. No acute cerebrovascular ischemia. 2. Mild chronic microvascular ischemic changes. 3. 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 4. Mild global cerebral volume loss.
--- NOTE | 2024-09-26 15:58 | DVHINCON2 ---
Date of service: Sep 26, [address] Crooks Reason for Consultation Syncope History of Present Illness Ms. Tolliver is a 68 years old right-handed female with a history of hypertension, chronic neck pain status post C-spine surgery, she was brought to the [facility] on 09/25/2024 with a chief company of passing out. At this time, she is alert, oriented x3, but is not a very good historian, after interviewing her, I have also found interviewed her (poor signal), as a result, long time spent before I obtained the following history On 09/25/2024, when she was sitting and watching TV with her , she developed dizziness/lightheadedness, nausea, he started to have code sweating, but the next memory was waking up still sitting up in the chair, confused, with dizziness/lightheadedness, a lot of code sweating. Her related the patient suddenly became nonresponsive, eyes spacing out, followed by the whole-body locked up/, she also stopped breathing, and he started [id number] breathing. The event was about 5 minutes, and she was very confused for 10 minutes after waking up. The patient had alcohol on 09/25/2024 About five years ago, the patient has had a similar passing out but without convulsion or seizure like activity, the patient was seen in the local hospital, both her and her did not remember how the patient was treated, and was diagnosis was given Her gait was normal, she rule out bicycle, but she had poor balance after she was discharged from a hospital 2-3 years ago. They do not remember the reason for hospitalization, but the patient was said to have low-sodium at that time She has a heavy alcohol history (SEE SOCIAL HISTORY) She has slurred speech, both her and the believes this was because of poor dentition CBC, 09/25/2024: Unremarkable ESR, 10/13/24: 4 Sodium, 09/25/2024: 121, 10/13/2024: 123 Liver function tests, 10/13/2024: Normal TG/CHOL/HDL/HDL, 09/26/2024: 37/163/29/94 CT head, 09/25/2024: 1. No intracranial hemorrhage or mass effect. 2. 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 Recommend MRI brain to further evaluate. 3. Mild chronic microvascular ischemic changes. 4. Mild global cerebral volume loss. MRI head, 09/26/2024: 1. No acute cerebrovascular ischemia. 2. Mild chronic microvascular ischemic changes. 3. 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 4. Mild global cerebral volume loss Past Medical History Hypertension, no stroke, no seizure Past Surgical History C-spine surgery Family History: FH: brain cancer G8 SISTER Hypertension G8 MOTHER G8 FATHER Family History Hypertension, Social History She was tobacco smoke, she drinks beers almost daily for 20-30 years, six packs daily Allergies: Coded Allergies: Iodine (Verified Allergy, Mild, 09/25/24) Penicillins (Verified Allergy, Mild, 09/25/24) Home Meds Reported Medications Mirtazapine (REMERON) 30 Mg Tab, 10 MG OR QPM, TAB 09/26/24 Quetiapine Fumerate (QUETIAPINE FUMARATE) 25 Mg Tab, 1 TAB PO QHSP PRN for insomnia 09/25/24 Cyanocobalamin (Vitamin B-12) 1,000 Mcg Tab, 1 TAB PO DAILY 09/25/24 Gabapentin (Gabapentin) 300 Mg Cap, 1 CAP PO BIDPRN PRN for pain 09/25/24 Hydrochlorothiazide (Hydrochlorothiazide) 12.5 Mg Cap, 1 CAP PO DAILY for blood pressure 09/25/24 Folic Acid (Folic Acid) 1 Mg Tab, 1 TAB PO DAILY 09/25/24 Carvedilol (Carvedilol) 12.5 Mg Tab, 1 TAB PO BID 09/25/24 Sacubitril-Valsartan (Entresto 97-103 mg) 1 Tab Tab, 1 TAB PO BID 09/25/24 Amlodipine Besylate (Amlodipine Besylate) 5 Mg Tab, 1 TAB PO DAILY 09/25/24 Current Medications Current Medications Medications (Trade) Dose Ordered Sig/Cathy Route PRN Reason Start Time Stop Time Status Last Admin Acetaminophen/ Hydrocodone Bitart ([place] 5/325MG Tab) 1 tab Q4HP PRN PO MODERATE PAIN (4-6 PAIN SCALE) 09/25/24 18:00 Ondansetron HCl (Zofran) 4 mg Q4HP PRN IV NAUSEA / VOMITING 09/25/24 18:00 Acetaminophen (Tylenol Tablet) 650 mg Q6HP PRN PO PAIN SCALE 1-3 OR TEMP>100.4 09/25/24 18:00 Enoxaparin Sodium (Lovenox) 40 mg DAILY SC 09/26/24 10:00 09/26/24 09:31 Nitroglycerin (Ntrostat Sublingual) 0.4 mg Q5MINP PRN SL FOR CHEST PAIN 09/25/24 18:00 Morphine Sulfate 2 mg Q30M PRN IV FOR CHEST PAIN 09/25/24 18:00 Hydralazine HCl (Apresoline Injection) 10 mg Q6HP PRN IV SBP>150 09/25/24 18:00 Aspirin 81 mg DAILY PO 09/26/24 10:00 09/26/24 09:31 Atorvastatin Calcium (Lipitor) 40 mg HS PO 09/26/24 22:00 Sodium Chloride 1,000 ml @ 80 mls/hr [id number] IV 09/26/24 08:00 09/26/24 07:45 DC Amlodipine Besylate (Norvasc Tablet) 5 mg DAILY PO 09/27/24 10:00 Carvedilol (Coreg Tablet) 12.5 mg BID PO 09/26/24 22:00 Gabapentin (Neurontin Capsule) 300 mg BIDPRN PRN PO pain 09/26/24 12:30 Mirtazapine (Remeron Tablet) 15 mg QPM PO 09/26/24 18:00 Quetiapine Fumarate (SEROquel TABLET) 25 mg QHSP PRN PO insomnia 09/26/24 12:30 Folic Acid 1 mg DAILY PO 09/27/24 10:00 Patient Own Medication 1 tab BID PO 09/26/24 22:00 Review of Systems As above, the other systems are negative Vital Signs Vital Signs Date Time Temp Pulse Resp B/P (MAP) Pulse Ox O2 Delivery O2 Flow Rate FiO2 09/26/24 13:00 98.5 51 19 122/38 (66) 97 98.5 09/26/24 08:00 Nasal Cannula* 2 28 Physical Exam GENERAL EXAM: General: the patient is well developed and nourished. No acute distress. HEENT: Normocephalic, neck is supple, no carotid bruits. No mass. RESPIRATORY: Normal respiratory effort with symmetrical lung expansion. Lungs clear to auscultation. CARDIOVASCULAR: Regular rate and rhythm with no murmurs. S1, S2. ABDOMEN: Soft, nontender, normal bowel sound NEUROLOGICAL: MENTAL STATUS: Awake and alert. Oriented to person, place, time and general circumstances. Poor historian SPEECH, LANGUAGE, HIGHER CORTICAL FUNCTION: no aphasia, mild dysathria. CRANIAL NERVES: #2: Intact visual urbina to confrontation. The optic discs were sharp. #3,4,6: Pupils are equal, round and reactive. EOMs full and conjugate. No nystagmus. #5: Facial sensation intact in all three divisions bilaterally. Mandibular strength intact. #7: Facial muscles symmetrical and strength intact. #8: Hearing grossly normal to voice. #9,10: Uvula and soft palate rise in the midline. Swallow and voice are normal. #11: Trapezius and sternomastoid strength intact bilaterally. #12: Tongue midline. No fasciculations or atrophy. SENSATION: Sensation to touch and pinprick is normal. MOTOR: Normal tone in the upper and lower extremity. Normal muscle bulk. No fasciculations. No abnormal movements or posturing. Muscle strength of the major groups in the upper extremities is 5/5. Muscle strength of the major groups in the lower extremities is 5/5. REFLEXES: Deep tendon reflexes are symmetrical. No pathological reflexes. CEREBELLAR/COORDINATION: Finger to nose is normal bilaterally. GAIT/STATION: deferred Labs/Diagnostic Data Labs Test 09/26/24 05:35 09/26/24 00:00 09/25/24 18:15 09/25/24 14:50 Range/Units White Blood Count 4.1 #L 4.4-10.8 10^3/uL Red Blood Count 3.88 L 4.0-5.20 10^6/uL Hemoglobin 12.4 12.2-16.2 g/dL Hematocrit 35.5 #L 36.0-46.0 % Mean Corpuscular Volume 91.5 80.0-100.0 fL Mean Corpuscular Hemoglobin 31.9 28.0-32.0 pg Mean Corpuscular Hemoglobin Concent 34.8 32.0-36.0 g/dL Red Cell Distribution Width 13.6 11.8-14.3 % Platelet Count 263 140-450 10^3/uL Mean Platelet Volume 7.7 6.9-10.8 fL Neutrophils (%) (Auto) 57.4 37.0-80.0 % Lymphocytes (%) (Auto) 23.0 10.0-50.0 % Monocytes (%) (Auto) 16.3 H 0.0-12.0 % Eosinophils (%) (Auto) 2.2 0.0-7.0 % Basophils (%) (Auto) 1.1 0.0-2.0 % Neutrophils # (Auto) 2.4 1.6-8.6 10 ^3/uL Lymphocytes # (Auto) 0.9 0.4-5.4 10 ^3/uL Monocytes # (Auto) 0.7 0-1.3 10 ^3/uL Eosinophils # (Auto) 0.1 0-0.8 10 ^3/uL Basophils # (Auto) 0 0-0.2 10 ^3/uL Nucleated Red Blood Cells 0.2 % Erythrocyte Sedimentation Rate 4 0-20 mm/hr Prothrombin Time 11.3 9.3-11.8 sec Prothrombin Time INR 1.07 0.9-1.15 Activated Partial Thromboplast Time 29.9 24.5-34.5 SEC Sodium Level 123 L 136-145 mmol/L Potassium Level 3.7 3.5-5.1 mmol/L Chloride Level 92 L 98-107 mmol/L Carbon Dioxide Level 23 20-31 mmol/L Anion Gap 8 5-15 Blood Urea Nitrogen 6 L 9-23 mg/dL Creatinine 0.53 L 0.550-1.02 mg/dL Glomerular Filtration Rate Calc 101 >90 mL/min BUN/Creatinine Ratio 11.3 10.0-20.0 Serum Glucose 108 H 74-106 mg/dL Calcium Level 8.6 L 8.7-10.4 mg/dL Total Bilirubin 0.6 0.2-1.0 mg/dL Aspartate Amino Transferase (AST) 18 <34 U/L Alanine Aminotransferase (ALT) 9 7-40 U/L Alkaline Phosphatase 88 46-116 U/L C-Reactive Protein High Sensitivity 0.47 <1.0 mg/dL Total Protein 6.3 5.7-8.2 g/dL Albumin 4.0 3.2-4.8 g/dL Triglycerides Level 37 < 150 mg/dL Cholesterol Level 163 < 200 mg/dL LDL Cholesterol 29 < 100 mg/dL HDL Cholesterol 94 H 40-59 mg/dL Thyroid Stimulating Hormone (TSH) 1.16 0.55-4.78 uIU/mL Lactic Acid Level 1.2 0.4-2.0 mmol/L Troponin I High Sensitivity 17 </=34 ng/L Magnesium Level 2.1 1.6-2.6 mg/dL Test 09/25/24 14:30 Range/Units Urine Color Colorless Yellow Urine Clarity Clear Clear Urine pH 6.5 5.0-9.0 Urine Specific [place] 1.003 1.001-1.035 Urine Protein Trace H Negative Urine Ketones Negative Negative Urine Blood Negative Negative /uL Urine Nitrite Negative Negative Urine Bilirubin Negative Negative Urine Urobilinogen Normal Negative mg/dL Urine Leukocyte Esterase Negative Negative /uL Urine RBC <1 0 - 4 /hpf Urine Microscopic WBC 2 0-5 /HPF Urine Squamous Epithelial Cells None seen <5 /hpf Urine Bacteria Few H None Seen /hpf Urine Glucose Normal Normal mg/dL Assessment Episodic event Convulsive syncope Alcohol withdrawal seizure Alcoholism 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 Although this document has been carefully reviewed, there may still be some phonetic and typographical errors. These areas are purely typographical due to imperfections of the software programs, and do not reflect any compromise in the patient's medical care. Plan discussed with: Spouse, Other GEORGE DIOP MD Sep 26, 2024 15:58
[2024-09-26 16:14] LABS: Creatinine, Urine 67.2 mg/dL (30.0-125.0)
[2024-09-26] MEDS: FOLIC ACID 1 MG in D5W 5% 50 ML INJ ONE (17:30)
[2024-09-26] MEDS: MIRTAZAPINE 30 MG TAB PO SCH (19:06)
[2024-09-26] MEDS: THIAMINE 100mg/ml INJ (200mg/2ml VIAL) IV ONE (19:07)
[2024-09-26] MEDS: ATORVASTATIN 20 MG TAB PO SCH (20:15)
[2024-09-26] MEDS: CARVEDILOL 12.5 MG TAB PO SCH (20:16)
--- NOTE | 2024-09-26 21:03 | DVH ---
US CAROTID DOPPLER CLINICAL INDICATION: cva TECHNIQUE: Multiple grayscale, color Doppler and spectral Doppler ultrasound images were obtained thr oughout both carotid systems. COMPARISON: None FINDINGS: RIGHT: CCA PSV: 132 cm/s ECA PSV: 160 cm/s ICA PSV: 142 cm/s ICA EDV: 21 cm/s ICA/CCA Ratio: 1 Vertebral artery: Patent, antegrade flow. Calcified plaque at the carotid bifurcation. No significant stenosis on color imaging. Spectral erickson sis demonstrates no hemodynamically significant CCA or ICA stenosis. LEFT: CCA PSV: 112 cm/s ECA PSV: 118 cm/s ICA PSV: 187 cm/s ICA EDV: 19 cm/s ICA/CCA Ratio: 1.7 Vertebral artery: Patent, antegrade flow. Calcified plaque in the carotid bifurcation extending into the left internal carotid artery. No signi ficant stenosis on color imaging. Spectral analysis demonstrates no hemodynamically significant CCA o r ICA stenosis. IMPRESSION: 1. Increased velocity of the left internal carotid artery ( 187 cm/sec) distally which by velocity dow ggests a 50-69% stenosis. 2. Borderline increased velocity of the right internal carotid artery at the mid aspect measuring 142 cm/sec which by velocity suggests 50-69% stenosis. 3. The ICA/CCA Ratio is not elevated and there is no visible stenosis on color imaging, going against hemodynamically significant stenosis.
[2024-09-27] VITALS (9 sets, daily range): BP systolic 130–155; BP diastolic 45–69; PULSE 47–83; RESP 15–18; TEMP 97.8–98.3; O2SAT 2–98
[2024-09-27 06:14] LABS: Potassium 3.9 mmol/L (3.5-5.1)
[2024-09-27 06:15] LABS: Anion Gap 8 (5-15); Carbon Dioxide 24 mmol/L (20-31)
[2024-09-27 06:16] LABS: Calcium 9.8 mg/dL (8.7-10.4)
[2024-09-27 06:20] LABS: Glucose 100 mg/dL (74-106)
[2024-09-27 06:21] LABS: BUN/Creatinine Ratio 12.3 (10.0-20.0)
[2024-09-27 06:29] LABS: Blood Urea Nitrogen 8 mg/dL (9-23); Chloride 96 mmol/L (98-107); Sodium 128 mmol/L (136-145)
[2024-09-27] MEDS: THIAMINE 100mg/ml INJ (200mg/2ml VIAL) IV SCH (09:25)
[2024-09-27] MEDS: HYDROcodone-ACET 5/325MG TAB PO PRN (09:26)
[2024-09-27] MEDS: amLODIPine BESYLATE 5 MG TAB PO SCH (09:27)
--- NOTE | 2024-09-27 09:59 | DVHSR ---
APPROVED REPORT EXAM: LIMITED Two-dimensional and M-mode echocardiogram with Doppler and color Doppler. Blood Pressure: 102/66 mmHg INDICATION Syncope RISK FACTORS Height: 5'10, Weight: 136 DIMENSIONS LVDd4.3 (3.8-5.7cm)LA (2D)3.7 (1.9-4.0cm)Aortic Root2.8 (2.0-3.7cm) LVDs2.3 (2.5-4.0cm)LA (MM) (1.9-4.0cm)Aortic Cusp Exc1.3 (1.5-2.0cm) EF (%) 78.4 (55-70%)Rt. Atrium3.3 (1.9-4.0cm)Asc. Aorta cm IVSd1.1 (0.7-1.1cm)RV (D)4.3 (1.8-2.4cm) PWd1.0 (0.7-1.1cm) Mitral Valve MitralMitral Stenosis E wave1.46m/sMV Mean GR.mmHg A wave0.92m/sMV Peak GR.141mmHg E/A ratio1.62D MVAcm2 DECEL [id number] 1/2 Timems Aortic Valve Aortic ValveAortic Stenosis V11.31m/Neha Mean GR.5mmHg V21.68m/Neha Peak GR.11mmHg LVOT Diameter1.8 (1.8-2.4cm)Doppler AVA1.98cm2 Pulmonic Valve V21.12m/s Tricuspid Valve TR Velocity2.14m/s [id number] Other Information Technically limited study due to large breast implants Conclusion Left ventricle: Left ventricle was normal-sized. Left ventricular systolic function was hyperdynami c. LVEF was around 75%. There was no gross wall motion abnormality. Diastolic function was conside red normal for age. Right ventricle is normal-sized with normal systolic function. Both atria were normal-sized. Aortic valve: Aortic valve was trileaflet. There was no aortic insufficiency/stenosis. There was tr deisi mitral/tricuspid regurgitation. There was trace pulmonary valve insufficiency. Right ventricular systolic pressure was assessed at 22 mm Hg (normal). There was no pericardial effu adrian.
[2024-09-27] MEDS ORDERED: FOLIC ACID 1 MG TAB PO SCH (10:00)
[2024-09-27] MEDS: FOLIC ACID 1 MG in D5W 5% 50 ML INJ SCH (10:00)
--- NOTE | 2024-09-27 10:24 | DVHPN2 ---
Progress Note - Dictate Date Seen: Sep 27, 2024 Medical Necessity Reason Pt with a Central, PICC or Fol: No vital signs Vital Sign Date Time Temp Pulse Resp B/P (MAP) Pulse Ox O2 Delivery O2 Flow Rate FiO2 09/27/24 09:27 53 09/27/24 09:27 113/54 09/27/24 08:10 98.1 15 98 98.1 09/27/24 08:09 Nasal Cannula* 2 28 Total Intake and Output 09/26/24 09/26/24 09/27/24 15:00 23:00 07:00 Intake Total 200 ml 200 ml Balance 200 ml 200 ml medications Current Medications Medications Dose Ordered Sig/Cathy Route Start Time Stop Time Status Last Admin Dose Admin Acetaminophen/ Hydrocodone Bitart 1 tab Q4HP PRN PO 09/25/24 18:00 09/27/24 09:26 1 TAB Ondansetron HCl 4 mg Q4HP PRN IV 09/25/24 18:00 Acetaminophen 650 mg Q6HP PRN PO 09/25/24 18:00 Enoxaparin Sodium 40 mg DAILY SC 09/26/24 10:00 09/27/24 09:25 40 MG Nitroglycerin 0.4 mg Q5MINP PRN SL 09/25/24 18:00 Morphine Sulfate 2 mg Q30M PRN IV 09/25/24 18:00 Hydralazine HCl 10 mg Q6HP PRN IV 09/25/24 18:00 Aspirin 81 mg DAILY PO 09/26/24 10:00 09/27/24 09:25 81 MG Atorvastatin Calcium 40 mg HS PO 09/26/24 22:00 09/26/24 20:15 40 MG Amlodipine Besylate 5 mg DAILY PO 09/27/24 10:00 09/27/24 09:27 5 MG Carvedilol 12.5 mg BID PO 09/26/24 22:00 09/26/24 20:16 12.5 MG Gabapentin 300 mg BIDPRN PRN PO 09/26/24 12:30 Mirtazapine 15 mg QPM PO 09/26/24 18:00 09/26/24 19:06 15 MG Quetiapine Fumarate 25 mg QHSP PRN PO 09/26/24 12:30 Patient Own Medication 1 tab BID PO 09/26/24 22:00 Thiamine HCl 100 mg DAILY IV 09/27/24 10:00 09/27/24 09:25 100 MG Folic Acid 1 mg/ Dextrose 50.2 ml @ 200.8 mls/ hr DAILY INJ 09/27/24 10:00 laboratory and microbiology Laboratory Tests 09/27/24 05:40 09/26/24 05:35 Test 09/27/24 05:40 Range/Units Serum Glucose 100 74-106 mg/dL Assessment/Plan Patient is a 68-year-old female who came to the hospital for abnormal labs. She mentions that her outside PCP called her for an abnormal labs (low sodium) and asked her to go to the hospital. She also mentions that the day before presentation, the patient did feel nauseous and reportedly passed out. She does not remember the episode but mentions that her attempted to revive her also. She is admitted to the hospital with syncope. She mentions generalized weakness for few days prior to presentation. Cardiology is involved for cardiac aspects of care. Patient denies any previous cardiac problem. Denies previous knowledge of any stroke/heart attacks. Denies any previous chest pains. Denies previous evaluation by detailer. It is of note that the CT scan of the head which was performed in the emergency room questioned CVA. Not in acute distress. Sitting in bed. No JVD. Mucosa is pink and wet. No carotid bruit. No goiter. Lungs are clear to auscultation. Not using accessory muscles of breathing. Cardiac: Regular, systolic murmur in the base is heard (2/6). Abdomen is soft. There is no gross mass. There is no gross hepatomegaly. Extremities do not reveal edema. Dorsalis pedis is 2+ bilateral. Past medical history includes hypertension, degenerative disc disease in the neck (status post surgery for it) and degenerative disc disease in lower back. Does have baseline unstable gait (she herself attributes it to the degenerative disc disease). Does have old history of frequency. Occasionally gets leg swellings through the end of the day. He is allergic to penicillin and iodine (has had rash with it). Denies any relevant family history (but hypertension). Quit smoking few years back (after decades of smoking). Drinks beer 4-5 times a week. Stopped substance abuse in her 20s. Sodium: 114 - 121 - 123 - 128 Potassium: 3.9 - 4.7 - 3.7 - 3.9 Creatinine: 0.57 - 0.54 - 0.53 - 0.65 Lactic acid: 2.7 - 1.2 Troponin (high sensitive): 7 - 13 - 17 TSH: 1.16 LDL: 29 CRP: 0.47 U/A: non-revealing Chest x-ray revealed: IMPRESSION: No acute cardiopulmonary process. CT of the head revealed: IMPRESSION: 1. No intracranial hemorrhage or mass effect. 2. 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 Recommend MRI brain to further evaluate. 3. Mild chronic microvascular ischemic changes. 4. Mild global cerebral volume loss. Brain MRI revealed: IMPRESSION: 1. No acute cerebrovascular ischemia. 2. Mild chronic microvascular ischemic changes. 3. 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 4. Mild global cerebral volume loss. Carotid sono revealed: IMPRESSION: 1. Increased velocity of the left internal carotid artery ( 187 cm/sec) distally which by velocity suggests a 50-69% stenosis. 2. Borderline increased velocity of the right internal carotid artery at the mid aspect measuring 142 cm/sec which by velocity suggests 50-69% stenosis. 3. The ICA/CCA Ratio is not elevated and there is no visible stenosis on color imaging, going against hemodynamically significant stenosis. EKG revealed sinus rhythm, biatrial enlargement, questionable old anteroseptal [place], no acute ST-T changes Tele reveals sinus bradycardia. Later revealed sinus rhythm. There have been occasions of 2:1 AV block. Detail review of tele is in favor of type 1 second degree AV block with occasions of 2:1 block. Echocardiogram reported: Left ventricle: Left ventricle was normal-sized. Left ventricular systolic function was hyperdynamic. LVEF was around 75%. There was no gross wall motion abnormality. Diastolic function was considered normal for age. Right ventricle is normal-sized with normal systolic function. Both atria were normal-sized. Aortic valve: Aortic valve was trileaflet. There was no aortic insufficiency/stenosis. There was trace mitral/tricuspid regurgitation. There was trace pulmonary valve insufficiency. Right ventricular systolic pressure was assessed at 22 mm Hg (normal). There was no pericardial effusion. Patient is a 68-year-old female who presented with few days of generalized weakness. Did have an episode of syncope prior to presentation. Does have baseline poor functional capacity and unstable gait. Was found to have hyponatremia as outpatient which slowly has improved since arrival. Lactic acid was elevated on presentation. Presentation questions syncope. ACS is not considered. Cardiac etiology for syncope can not be ruled out. Does have sinus bradycardia which has not been significant yet. Is found to have possible subacute CVA which could have contributed to the clinical picture? MRI ruled out acute CVA. Patient is seen by Neurology and Nephrology. Neurology found alcohol abuse. Echo findings are against heart failure. Tele revealed occasions of second degree AV block and occasions of 2:1 AV block. Detail review is in favor of type 1 second degree AV block and occasions of 2:1 AV block. Patient has been on 12.5 mg of Carvedilol which could have contributed to the above. Echo revealed hyperdynamic LV and is in favor of dehydration contributing to hyponatremia and possible presentation. Patient had been on diuretics as outpatient which could have contributed to above. Nephrology has also advised against diuretics. Syncope Hyponatremia CVA, old Sinus bradycardia Unstable gait Degenerative disc disease Alcohol abuse Seizure disorder? Second degree AV block Cardiac suggestion for management: Manage on telemetry Follow-up electrolytes and kidney function tests and correct abnormalities. Keep potassium above 4 and magnesium above 2 Aspirin: 81 mg daily Atorvastatin: 40 mg at night Echocardiogram findings are against any component of heart failure (even diastolic) for this patient Decrease Carvedilol to 6.25 mg (from 12.5 mg) PO BID Long-term monitor (can be arranged as outpatient) Neurology follow up Nephrology follow up Agree to hold diuretics (suggested by Nephrology) Lifestyle and risk factor modifications Counseled to avoid / decrease alcohol consumption Further evaluation and management depends on the above and clinical course A total of 55 minutes was spent reviewing the patient record, examining the patient, making a diagnostic and therapeutic plan, discussing this plan with medical personnel, following up on diagnostic studies and following the patient for clinical stability excluding any and all procedures. At least 50% of this time was spent in direct, [id number] contact. Thank you for allowing me to participate in this patient's care. Further recommendations will depend on patient's clinical course. Please do not hesitate to contact me if you have any questions or concerns. This medical document was created using electronic medical record system with [employer] dictation system. Although this document has been carefully reviewed, there may still be some phonetic and typographical errors. These areas are purely typographical due to the imperfection of the software programs, and do not reflect any compromise in the patient's medical care. Plan discussed with: Patient, Other (nurse) VEENA WHYTE MD Sep 27, 2024 10:24
--- NOTE | 2024-09-27 14:07 | DVHPN2 ---
Progress Note Date Seen: Sep 27, 2024 Medical Necessity Reason Pt with a Central, PICC or Fol: No Objective vital signs Vital Sign Date Time Temp Pulse Resp B/P (MAP) Pulse Ox O2 Delivery O2 Flow Rate FiO2 09/27/24 12:10 98.0 76 15 134/55 (81) 96 98.0 09/27/24 08:09 Nasal Cannula* 2 28 Total Intake and Output 09/26/24 09/26/24 09/27/24 15:00 23:00 07:00 Intake Total 200 ml 200 ml Balance 200 ml 200 ml medications Current Medications Medications Dose Ordered Sig/Cathy Route Start Time Stop Time Status Last Admin Dose Admin Acetaminophen/ Hydrocodone Bitart 1 tab Q4HP PRN PO 09/25/24 18:00 09/27/24 09:26 1 TAB Ondansetron HCl 4 mg Q4HP PRN IV 09/25/24 18:00 Acetaminophen 650 mg Q6HP PRN PO 09/25/24 18:00 Enoxaparin Sodium 40 mg DAILY SC 09/26/24 10:00 09/27/24 09:25 40 MG Nitroglycerin 0.4 mg Q5MINP PRN SL 09/25/24 18:00 Morphine Sulfate 2 mg Q30M PRN IV 09/25/24 18:00 Hydralazine HCl 10 mg Q6HP PRN IV 09/25/24 18:00 Aspirin 81 mg DAILY PO 09/26/24 10:00 09/27/24 09:25 81 MG Atorvastatin Calcium 40 mg HS PO 09/26/24 22:00 09/26/24 20:15 40 MG Amlodipine Besylate 5 mg DAILY PO 09/27/24 10:00 09/27/24 09:27 5 MG Gabapentin 300 mg BIDPRN PRN PO 09/26/24 12:30 Mirtazapine 15 mg QPM PO 09/26/24 18:00 09/26/24 19:06 15 MG Quetiapine Fumarate 25 mg QHSP PRN PO 09/26/24 12:30 Patient Own Medication 1 tab BID PO 09/26/24 22:00 Thiamine HCl 100 mg DAILY IV 09/27/24 10:00 09/27/24 09:25 100 MG Folic Acid 1 mg/ Dextrose 50.2 ml @ 200.8 mls/ hr DAILY INJ 09/27/24 10:00 Carvedilol 6.25 mg BID PO 09/27/24 22:00 Examination: GENERAL:Normal, CVS:Normal, SKIN:Normal laboratory and microbiology Laboratory Tests 09/27/24 05:40 09/26/24 05:35 Test 09/27/24 05:40 Range/Units Serum Glucose 100 74-106 mg/dL Problem List/Assessment/Plan Problem List/Assessment/Plan 68-year-old female past medical history of hypertension presents to the hospital with a near syncopal episode was diagnosed with hyponatremia. Patient notably also has bradycardia with heart rate in the 50s. Clinically patient appears to be hypo to euvolemic. Hyponatremia History of hypertension Questionable history of congestive heart failure Na improving Encourage p.o. Cardiology Avoid hypotension No further use of thiazide diuretic in this patient recommend alternative agents. Plan discussed with: Patient FER GARCIA MD Sep 27, 2024 14:06
[2024-09-27] MEDS ORDERED: CARV6.2551 PO (16:54)
--- NOTE | 2024-09-27 16:55 | DVHPN2 ---
Progress Note - Dictate Date Seen: Sep 27, 2024 Medical Necessity Reason Pt with a Central, PICC or Fol: No vital signs Vital Sign Date Time Temp Pulse Resp B/P (MAP) Pulse Ox O2 Delivery O2 Flow Rate FiO2 09/27/24 12:10 98.0 76 15 134/55 (81) 96 98.0 09/27/24 08:09 Nasal Cannula* 2 28 Total Intake and Output 09/26/24 09/26/24 09/27/24 15:00 23:00 07:00 Intake Total 200 ml 200 ml Balance 200 ml 200 ml medications Current Medications Medications Dose Ordered Sig/Cathy Route Start Time Stop Time Status Last Admin Dose Admin Acetaminophen/ Hydrocodone Bitart 1 tab Q4HP PRN PO 09/25/24 18:00 09/27/24 09:26 1 TAB Ondansetron HCl 4 mg Q4HP PRN IV 09/25/24 18:00 Acetaminophen 650 mg Q6HP PRN PO 09/25/24 18:00 Enoxaparin Sodium 40 mg DAILY SC 09/26/24 10:00 09/27/24 09:25 40 MG Nitroglycerin 0.4 mg Q5MINP PRN SL 09/25/24 18:00 Morphine Sulfate 2 mg Q30M PRN IV 09/25/24 18:00 Hydralazine HCl 10 mg Q6HP PRN IV 09/25/24 18:00 Aspirin 81 mg DAILY PO 09/26/24 10:00 09/27/24 09:25 81 MG Atorvastatin Calcium 40 mg HS PO 09/26/24 22:00 09/26/24 20:15 40 MG Amlodipine Besylate 5 mg DAILY PO 09/27/24 10:00 09/27/24 09:27 5 MG Gabapentin 300 mg BIDPRN PRN PO 09/26/24 12:30 Mirtazapine 15 mg QPM PO 09/26/24 18:00 09/26/24 19:06 15 MG Quetiapine Fumarate 25 mg QHSP PRN PO 09/26/24 12:30 Patient Own Medication 1 tab BID PO 09/26/24 22:00 Thiamine HCl 100 mg DAILY IV 09/27/24 10:00 09/27/24 09:25 100 MG Folic Acid 1 mg/ Dextrose 50.2 ml @ 200.8 mls/ hr DAILY INJ 09/27/24 10:00 Carvedilol 6.25 mg BID PO 09/27/24 22:00 objective General Appearance: alert, no distress HEENT: EOMI, PERRLA, normal external inspect of ears, no icterus, no nasal drainage Neck: no carotid bruit, no jugular venous distention (JVD), no lymphadenopathy Chest: normal thorax Respiratory: clear to auscultation, normal air movement Cardiovascular: regular rate and rhythm, no diastolic murmur, no jugular venous distention (JVD), no rub, no systolic murmur Abdominal: soft, no hepatomegaly, no mass, no splenomegaly, no tenderness Genitourinary: grossly normal external Musculoskeletal: no joint tenderness, no swelling Extremities: normal pulses, no calf tenderness, no clubbing, no cyanosis, no edema Skin: no bruising, no jaundice, no rash Neurological: alert, No focal deficit laboratory and microbiology Laboratory Tests 09/27/24 05:40 09/26/24 05:35 Test 09/27/24 05:40 Range/Units Serum Glucose 100 74-106 mg/dL Problem List 1. Hyponatremia Monitor, nephrology consult, lipid panel, daily labs 2. Syncope Monitor, cardiology consult, echocardiogram 3. Possible CVA Monitor, MRI brain, neurology consult 4. Bradycardia Monitor, fluid resuscitation 5. Benign essential HTN Monitor Assessment/Plan Subjective: Patient is awake and alert, wants to discharge home. Objective: Patient was admitted for hyponatremia and bradycardia. Patient was seen by nephrology and cardiology. Sodium 128. Plan: Continue recommendations per nephrology. Monitor EKG. Repeat BMP pending. Plan discussed with: Patient, Other TIP AGOSTO NP Sep 27, 2024 16:55
[2024-09-27 17:28] LABS: Potassium 4.4 mmol/L (3.5-5.1)
[2024-09-27 17:29] LABS: Anion Gap 7 (5-15); Calcium 9.9 mg/dL (8.7-10.4); Carbon Dioxide 24 mmol/L (20-31); Chloride 96 mmol/L (98-107); Sodium 127 mmol/L (136-145)
[2024-09-27 17:34] LABS: BUN/Creatinine Ratio 19.7 (10.0-20.0); Blood Urea Nitrogen 13 mg/dL (9-23); Glucose 100 mg/dL (74-106)
[2024-09-27] MEDS: QUEtiapine FUMARATE 25 MG TAB PO PRN (21:05)
[2024-09-27] MEDS: CARVEDILOL 3.125 MG TAB PO SCH (21:05)
--- NOTE | 2024-09-27 21:57 | DVHPN2 ---
Progress Note - Dictate Date Seen: Sep 27, 2024 Medical Necessity Reason Pt with a Central, PICC or Fol: No Subjective Ms. Tolliver is a 68 years old right-handed female with a history of hypertension, chronic neck pain status post C-spine surgery, she was brought to the [facility] on 09/25/2024 with a chief company of passing out. I have seen and examined the patient, I have talked to her nurse, she is doing fine, no new complaints, she oriented x3 Her walking is slightly abnormal CBC, 09/25/2024: Unremarkable ESR, 10/13/24: 4 Sodium, 09/25/2024: 121, 10/13/2024: 123 Liver function tests, 10/13/2024: Normal TG/CHOL/HDL/HDL, 09/26/2024: 37/163/29/94 Echocardiogram, 09/27/2024: Left ventricle: Left ventricle was normal-sized. Left ventricular systolic function was hyperdynamic. LVEF was around 75%. There was no gross wall motion abnormality. Diastolic function was considered normal for age. Right ventricle is normal-sized with normal systolic function. Both atria were normal-sized. Aortic valve: Aortic valve was trileaflet. There was no aortic insufficiency/stenosis. There was trace mitral/tricuspid regurgitation. There was trace pulmonary valve insufficiency. Right ventricular systolic pressure was assessed at 22 mm Hg (normal). There was no pericardial effusion. Carotid Doppler, 09/26/2024: 1. Increased velocity of the left internal carotid artery ( 187 cm/sec) distally which by velocity suggests a 50-69% stenosis. 2. Borderline increased velocity of the right internal carotid artery at the mid aspect measuring 142 cm/sec which by velocity suggests 50-69% stenosis. 3. The ICA/CCA Ratio is not elevated and there is no visible stenosis on color imaging, going against hemodynamically significant stenosis. CT head, 09/25/2024: 1. No intracranial hemorrhage or mass effect. 2. 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 Recommend MRI brain to further evaluate. 3. Mild chronic microvascular ischemic changes. 4. Mild global cerebral volume loss. MRI head, 09/26/2024: 1. No acute cerebrovascular ischemia. 2. Mild chronic microvascular ischemic changes. 3. 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 4. Mild global cerebral volume loss vital signs Vital Sign Date Time Temp Pulse Resp B/P (MAP) Pulse Ox O2 Delivery O2 Flow Rate FiO2 09/27/24 21:05 155/69 09/27/24 20:00 2 Nasal Cannula* 2 28 09/27/24 16:10 98.2 82 15 98.2 Total Intake and Output 09/26/24 09/26/24 09/27/24 15:00 23:00 07:00 Intake Total 200 ml 200 ml Balance 200 ml 200 ml medications Current Medications Medications Dose Ordered Sig/Cathy Route Start Time Stop Time Status Last Admin Dose Admin Acetaminophen/ Hydrocodone Bitart 1 tab Q4HP PRN PO 09/25/24 18:00 09/27/24 09:26 1 TAB Ondansetron HCl 4 mg Q4HP PRN IV 09/25/24 18:00 Acetaminophen 650 mg Q6HP PRN PO 09/25/24 18:00 Enoxaparin Sodium 40 mg DAILY SC 09/26/24 10:00 09/27/24 09:25 40 MG Nitroglycerin 0.4 mg Q5MINP PRN SL 09/25/24 18:00 Morphine Sulfate 2 mg Q30M PRN IV 09/25/24 18:00 Hydralazine HCl 10 mg Q6HP PRN IV 09/25/24 18:00 Aspirin 81 mg DAILY PO 09/26/24 10:00 09/27/24 09:25 81 MG Atorvastatin Calcium 40 mg HS PO 09/26/24 22:00 09/27/24 21:04 40 MG Amlodipine Besylate 5 mg DAILY PO 09/27/24 10:00 09/27/24 09:27 5 MG Gabapentin 300 mg BIDPRN PRN PO 09/26/24 12:30 Mirtazapine 15 mg QPM PO 09/26/24 18:00 09/27/24 18:00 15 MG Quetiapine Fumarate 25 mg QHSP PRN PO 09/26/24 12:30 09/27/24 21:05 25 MG Patient Own Medication 1 tab BID PO 09/26/24 22:00 Thiamine HCl 100 mg DAILY IV 09/27/24 10:00 09/27/24 09:25 100 MG Folic Acid 1 mg/ Dextrose 50.2 ml @ 200.8 mls/ hr DAILY INJ 09/27/24 10:00 Carvedilol 6.25 mg BID PO 09/27/24 22:00 09/27/24 21:05 6.25 MG objective General: the patient is well developed and nourished. No acute distress. MENTAL STATUS: Subjective, poor historian SPEECH, LANGUAGE, HIGHER CORTICAL FUNCTION: no aphasia, mild dysathria. CRANIAL NERVES: Pupils are equal, round and reactive. EOMs full and conjugate. No nystagmus. Facial sensation intact in all three divisions bilaterally. Mandibular strength intact. Facial muscles symmetrical and strength intact. SENSATION: Sensation to touch and pinprick is normal. MOTOR: Normal tone in the upper and lower extremity. Normal muscle bulk. No fasciculations. No abnormal movements or posturing. Muscle strength of the major groups in the extremities is 5/5. REFLEXES: Deep tendon reflexes are symmetrical. No pathological reflexes. CEREBELLAR/COORDINATION: Finger to nose is normal bilaterally. 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 Although this document has been carefully reviewed, there may still be some phonetic and typographical errors. These areas are purely typographical due to imperfections of the software programs, and do not reflect any compromise in the patient's medical care. Prognosis poor Plan discussed with: Patient, Other GEORGE DIOP MD Sep 27, 2024 21:57
[2024-09-28 05:00] VITALS: BP 141/64; PULSE 78; RESP 18; TEMP 97.5; O2SAT 97
[2024-09-28 08:00] VITALS: PULSE 72; PULSE 79; RESP 18; O2SAT 2
[2024-09-28 08:13] LABS: Potassium 4.1 mmol/L (3.5-5.1)
[2024-09-28 08:14] LABS: Anion Gap 10 (5-15); Carbon Dioxide 22 mmol/L (20-31)
[2024-09-28 08:15] LABS: Chloride 97 mmol/L (98-107); Sodium 129 mmol/L (136-145)
[2024-09-28 08:19] LABS: BUN/Creatinine Ratio 12.7 (10.0-20.0); Blood Urea Nitrogen 9 mg/dL (9-23)
[2024-09-28 08:22] LABS: Glucose 126 mg/dL (74-106)
--- NOTE | 2024-09-28 08:26 | DVHPN2 ---
Progress Note - Dictate Date Seen: Sep 28, 2024 Medical Necessity Reason Pt with a Central, PICC or Fol: No vital signs Vital Sign Date Time Temp Pulse Resp B/P (MAP) Pulse Ox O2 Delivery O2 Flow Rate FiO2 09/28/24 05:00 97.5 78 18 141/64 (89) 97 97.5 09/27/24 20:00 Nasal Cannula* 2 28 Total Intake and Output 09/27/24 09/27/24 09/28/24 15:00 23:00 07:00 Intake Total 355 ml 240 ml 775 ml Balance 355 ml 240 ml 775 ml medications Current Medications Medications Dose Ordered Sig/Cathy Route Start Time Stop Time Status Last Admin Dose Admin Acetaminophen/ Hydrocodone Bitart 1 tab Q4HP PRN PO 09/25/24 18:00 09/27/24 09:26 1 TAB Ondansetron HCl 4 mg Q4HP PRN IV 09/25/24 18:00 Acetaminophen 650 mg Q6HP PRN PO 09/25/24 18:00 Enoxaparin Sodium 40 mg DAILY SC 09/26/24 10:00 09/27/24 09:25 40 MG Nitroglycerin 0.4 mg Q5MINP PRN SL 09/25/24 18:00 Morphine Sulfate 2 mg Q30M PRN IV 09/25/24 18:00 Hydralazine HCl 10 mg Q6HP PRN IV 09/25/24 18:00 Aspirin 81 mg DAILY PO 09/26/24 10:00 09/27/24 09:25 81 MG Atorvastatin Calcium 40 mg HS PO 09/26/24 22:00 09/27/24 21:04 40 MG Amlodipine Besylate 5 mg DAILY PO 09/27/24 10:00 09/27/24 09:27 5 MG Gabapentin 300 mg BIDPRN PRN PO 09/26/24 12:30 Mirtazapine 15 mg QPM PO 09/26/24 18:00 09/27/24 18:00 15 MG Quetiapine Fumarate 25 mg QHSP PRN PO 09/26/24 12:30 09/27/24 21:05 25 MG Patient Own Medication 1 tab BID PO 09/26/24 22:00 09/27/24 22:04 1 TAB Thiamine HCl 100 mg DAILY IV 09/27/24 10:00 09/27/24 09:25 100 MG Folic Acid 1 mg/ Dextrose 50.2 ml @ 200.8 mls/ hr DAILY INJ 09/27/24 10:00 Carvedilol 6.25 mg BID PO 09/27/24 22:00 09/27/24 21:05 6.25 MG laboratory and microbiology Laboratory Tests 09/28/24 07:35 09/26/24 05:35 Test 09/28/24 07:35 Range/Units Serum Glucose Pending Assessment/Plan Patient is a 68-year-old female who came to the hospital for abnormal labs. She mentions that her outside PCP called her for an abnormal labs (low sodium) and asked her to go to the hospital. She also mentions that the day before presentation, the patient did feel nauseous and reportedly passed out. She does not remember the episode but mentions that her attempted to revive her also. She is admitted to the hospital with syncope. She mentions generalized weakness for few days prior to presentation. Cardiology is involved for cardiac aspects of care. Patient denies any previous cardiac problem. Denies previous knowledge of any stroke/heart attacks. Denies any previous chest pains. Denies previous evaluation by retail support specialist. It is of note that the CT scan of the head which was performed in the emergency room questioned CVA. Not in acute distress. Sitting in bed. No JVD. Mucosa is pink and wet. No carotid bruit. No goiter. Lungs are clear to auscultation. Not using accessory muscles of breathing. Cardiac: Regular, systolic murmur in the base is heard (2/6). Abdomen is soft. There is no gross mass. There is no gross hepatomegaly. Extremities do not reveal edema. Dorsalis pedis is 2+ bilateral. Past medical history includes hypertension, degenerative disc disease in the neck (status post surgery for it) and degenerative disc disease in lower back. Does have baseline unstable gait (she herself attributes it to the degenerative disc disease). Does have old history of frequency. Occasionally gets leg swellings through the end of the day. He is allergic to penicillin and iodine (has had rash with it). Denies any relevant family history (but hypertension). Quit smoking few years back (after decades of smoking). Drinks beer 4-5 times a week. Stopped substance abuse in her 20s. Sodium: 114 - 121 - 123 - 128 - 127 - 129 Potassium: 3.9 - 4.7 - 3.7 - 3.9 - 4.4 - 4.1 Creatinine: 0.57 - 0.54 - 0.53 - 0.65 - 0.66 - 0.71 Lactic acid: 2.7 - 1.2 Troponin (high sensitive): TSH: 1.16 LDL: 29 CRP: 0.47 U/A: non-revealing Chest x-ray revealed: IMPRESSION: No acute cardiopulmonary process. CT of the head revealed: IMPRESSION: 1. No intracranial hemorrhage or mass effect. 2. 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 Recommend MRI brain to further evaluate. 3. Mild chronic microvascular ischemic changes. 4. Mild global cerebral volume loss. Brain MRI revealed: IMPRESSION: 1. No acute cerebrovascular ischemia. 2. Mild chronic microvascular ischemic changes. 3. 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 4. Mild global cerebral volume loss. Carotid sono revealed: IMPRESSION: 1. Increased velocity of the left internal carotid artery ( 187 cm/sec) distally which by velocity suggests a 50-69% stenosis. 2. Borderline increased velocity of the right internal carotid artery at the mid aspect measuring 142 cm/sec which by velocity suggests 50-69% stenosis. 3. The ICA/CCA Ratio is not elevated and there is no visible stenosis on color imaging, going against hemodynamically significant stenosis. EKG revealed sinus rhythm, biatrial enlargement, questionable old anteroseptal CT, no acute ST-T changes Tele reveals sinus bradycardia. Later revealed sinus rhythm. There have been occasions of 2:1 AV block. Detail review of tele is in favor of type 1 second degree AV block with occasions of 2:1 block. Slowly improving Echocardiogram reported: Left ventricle: Left ventricle was normal-sized. Left ventricular systolic function was hyperdynamic. LVEF was around 75%. There was no gross wall motion abnormality. Diastolic function was considered normal for age. Right ventricle is normal-sized with normal systolic function. Both atria were normal-sized. Aortic valve: Aortic valve was trileaflet. There was no aortic insufficiency/stenosis. There was trace mitral/tricuspid regurgitation. There was trace pulmonary valve insufficiency. Right ventricular systolic pressure was assessed at 22 mm Hg (normal). There was no pericardial effusion. Patient is a 68-year-old female who presented with few days of generalized weakness. Did have an episode of syncope prior to presentation. Does have baseline poor functional capacity and unstable gait. Was found to have hyponatremia as outpatient which slowly has improved since arrival. Lactic acid was elevated on presentation. Presentation questions syncope. ACS is not considered. Cardiac etiology for syncope can not be ruled out. Does have sinus bradycardia which has not been significant yet. Is found to have possible subacute CVA which could have contributed to the clinical picture? MRI ruled out acute CVA. Patient is seen by Neurology and Nephrology. Neurology found alcohol abuse. Echo findings are against heart failure. Tele revealed occasions of second degree AV block and occasions of 2:1 AV block. Detail review is in favor of type 1 second degree AV block and occasions of 2:1 AV block. Patient has been on 12.5 mg of Carvedilol which could have contributed to the above. Echo revealed hyperdynamic LV and is in favor of dehydration contributing to hyponatremia and possible presentation. Patient had been on diuretics as outpatient which could have contributed to above. Nephrology has also advised against diuretics. Syncope Hyponatremia CVA, old Sinus bradycardia Unstable gait Degenerative disc disease Alcohol abuse Seizure disorder? Second degree AV block Cardiac suggestion for management: Manage on telemetry Follow-up electrolytes and kidney function tests and correct abnormalities. Keep potassium above 4 and magnesium above 2 Aspirin: 81 mg daily Atorvastatin: 40 mg at night Echocardiogram findings are against any component of heart failure (even diastolic) for this patient Decrease Carvedilol to 3.125 mg (from 6.25 mg) PO BID Long-term monitor (can be arranged as outpatient) Neurology follow up Nephrology follow up Agree to hold diuretics (suggested by Nephrology) Lifestyle and risk factor modifications Counseled to avoid / decrease alcohol consumption Further evaluation and management depends on the above and clinical course A total of 55 minutes was spent reviewing the patient record, examining the patient, making a diagnostic and therapeutic plan, discussing this plan with medical personnel, following up on diagnostic studies and following the patient for clinical stability excluding any and all procedures. At least 50% of this time was spent in direct, [id number] contact. Thank you for allowing me to participate in this patient's care. Further recommendations will depend on patient's clinical course. Please do not hesitate to contact me if you have any questions or concerns. This medical document was created using electronic medical record system with [employer] dictation system. Although this document has been carefully reviewed, there may still be some phonetic and typographical errors. These areas are purely typographical due to the imperfection of the software programs, and do not reflect any compromise in the patient's medical care. Plan discussed with: Patient, Other (nurse) VEENA WHYTE MD Sep 28, 2024 08:26
[2024-09-28 09:21] VITALS: BP 133/73; PULSE 79; RESP 16; TEMP 98.6; O2SAT 98
[2024-09-28] MEDS: CARVEDILOL 3.125 MG TAB PO SCH (10:27)
[2024-09-28 13:43] VITALS: BP 148/57; PULSE 97; RESP 16; TEMP 97.7; O2SAT 98
[2024-09-28] MEDS ORDERED: CARV-214 PO (14:18)
--- NOTE | 2024-09-28 14:19 | DVHDS2 ---
Discharge Summary Date of Admission Sep 25, 2024 at 17:56 Date of Discharge: Sep 28, 2024 Labs/Diagnostic Data: Laboratory Results Test 09/28/24 13:40 09/28/24 07:35 09/26/24 05:35 09/26/24 00:00 Sodium Level 129 mmol/L (136-145) Potassium Level 4.1 mmol/L (3.5-5.1) Chloride Level 97 mmol/L (98-107) Carbon Dioxide Level 22 mmol/L (20-31) Anion Gap 10 (5-15) Blood Urea Nitrogen 9 mg/dL (9-23) Creatinine 0.71 mg/dL (0.550-1.02) Glomerular Filtration Rate Calc 93 mL/min (>90) BUN/Creatinine Ratio 12.7 (10.0-20.0) Serum Glucose 126 mg/dL (74-106) Calcium Level 10.0 mg/dL (8.7-10.4) White Blood Count 4.1 10^3/uL (4.4-10.8) Red Blood Count 3.88 10^6/uL (4.0-5.20) Hemoglobin 12.4 g/dL (12.2-16.2) Hematocrit 35.5 % (36.0-46.0) Mean Corpuscular Volume 91.5 fL (80.0-100.0) Mean Corpuscular Hemoglobin 31.9 pg (28.0-32.0) Mean Corpuscular Hemoglobin Concent 34.8 g/dL (32.0-36.0) Red Cell Distribution Width 13.6 % (11.8-14.3) Platelet Count 263 10^3/uL (140-450) Mean Platelet Volume 7.7 fL (6.9-10.8) Neutrophils (%) (Auto) 57.4 % (37.0-80.0) Lymphocytes (%) (Auto) 23.0 % (10.0-50.0) Monocytes (%) (Auto) 16.3 % (0.0-12.0) Eosinophils (%) (Auto) 2.2 % (0.0-7.0) Basophils (%) (Auto) 1.1 % (0.0-2.0) Neutrophils # (Auto) 2.4 10 ^3/uL (1.6-8.6) Lymphocytes # (Auto) 0.9 10 ^3/uL (0.4-5.4) Monocytes # (Auto) 0.7 10 ^3/uL (0-1.3) Eosinophils # (Auto) 0.1 10 ^3/uL (0-0.8) Basophils # (Auto) 0 10 ^3/uL (0-0.2) Nucleated Red Blood Cells 0.2 % Erythrocyte Sedimentation Rate 4 mm/hr (0-20) Prothrombin Time 11.3 sec (9.3-11.8) Prothrombin Time INR 1.07 (0.9-1.15) Activated Partial Thromboplast Time 29.9 SEC (24.5-34.5) Serum Osmolality 264 mOsm/kg (278-298) Total Bilirubin 0.6 mg/dL (0.2-1.0) Aspartate Amino Transferase (AST) 18 U/L (<34) Alanine Aminotransferase (ALT) 9 U/L (7-40) Alkaline Phosphatase 88 U/L (46-116) C-Reactive Protein High Sensitivity 0.47 mg/dL (<1.0) Total Protein 6.3 g/dL (5.7-8.2) Albumin 4.0 g/dL (3.2-4.8) Triglycerides Level 37 mg/dL (< 150) Cholesterol Level 163 mg/dL (< 200) LDL Cholesterol 29 mg/dL (< 100) HDL Cholesterol 94 mg/dL (40-59) Thyroid Stimulating Hormone (TSH) 1.16 uIU/mL (0.55-4.78) Urine Creatinine 67.20 mg/dL (30.0-125.0) Urine Sodium 39 mmol/L (40-220) Test 09/25/24 18:15 09/25/24 14:50 09/25/24 14:30 Lactic Acid Level 1.2 mmol/L (0.4-2.0) Troponin I High Sensitivity 17 ng/L (</=34) Magnesium Level 2.1 mg/dL (1.6-2.6) Urine Color Colorless (Yellow) Urine Clarity Clear (Clear) Urine pH 6.5 (5.0-9.0) Urine Specific [place] 1.003 (1.001-1.035) Urine Protein Trace (Negative) Urine Ketones Negative (Negative) Urine Blood Negative /uL (Negative) Urine Nitrite Negative (Negative) Urine Bilirubin Negative (Negative) Urine Urobilinogen Normal mg/dL (Negative) Urine Leukocyte Esterase Negative /uL (Negative) Urine RBC <1 /hpf (0 - 4) Urine Microscopic WBC 2 /HPF (0-5) Urine Squamous Epithelial Cells None seen /hpf (<5) Urine Bacteria Few /hpf (None Seen) Urine Glucose Normal mg/dL (Normal) Other Laboratory Tests 09/28/24 07:35 09/26/24 05:35 Brief Hx & Hospital Course: 68 yo female patient c/o generalized weakness x a couple days and syncope. Patient reports having nausea and chills last night before syncope. Patient also reports that she had lab work done last week and received a call from her doctor tell her to report to the ER due to having a sodium of 121. While in the emergency department the patient was evaluated by the provider, As per provider: Labs, vital signs, and imagining monitored. Patient was admitted on 09/25/2024 for hyponatremia. Patient was seen by nephrology. Patient was previously on hydrochlorothiazide which is now discontinued. Patient was seen by cardiology as well. Patient has no congestive heart failure. Diuretic was discontinued. Coreg dose was decreased to 3.125 twice daily. Patient will continue aspirin and atorvastatin at home. She was instructed by neurology for alcohol cessation. Patient will follow-up with her PCP in 1 week. The patient received proper medical treatment and medications. Vital signs, Imaging and Laboratory Work was monitored daily. All consults recommendations were followed as provided. There were no complaints or new complaints upon discharge, all questions and concerns were answered. Patient was advised to return to the ER or call 911 if any headaches, dizziness, shortness of breath, chest pain, bleeding, fevers, or worsening of medical condition. Patient/Family was counseled about treatment plan, medications, possible side effects, patient verbalized understanding. All questions were answered to the best of my ability. The patient symptoms improved and they are okay to be DC. Condition at Discharge: Stable Final Diagnosis/Problems List Syncope Bradycardia Benign essential HTN Hyponatremia CVA ruled out CHF ruled out Discharge Disposition: Home Discharge Instruct/Medications Diet: Cardiac 2g Na,low cholest Activity: No Restrictions, As Tolerated Discharge Statement: "Patient was advised to return to the ER or call 911 if any headaches, dizziness, shortness of breath, chest pain, abdominal pain, bleeding, fevers, or worsening of medical condition. Patient was counseled about treatment plan, medications, possible side effects, patientverbalized understanding. All questions were answered to the best of my ability. This discharge took greater then 30 minutes in planning, reviewing documentation, counseling the patient, and discussing with other team members." ASSESSMENT ASSESSMENT Assessment Hyponatremia CVA ruled out CHF ruled out TIP AGOSTO NP Sep 28, 2024 14:19
--- NOTE | 2024-09-28 15:46 | DVHPN2 ---
Progress Note Date Seen: Sep 28, 2024 Medical Necessity Reason Pt with a Central, PICC or Fol: No Objective vital signs Vital Sign Date Time Temp Pulse Resp B/P (MAP) Pulse Ox O2 Delivery O2 Flow Rate FiO2 09/28/24 13:43 97.7 97 16 148/57 (87) 98 97.7 09/28/24 08:00 Nasal Cannula* 2 28 Total Intake and Output 09/27/24 09/27/24 09/28/24 15:00 23:00 07:00 Intake Total 355 ml 240 ml 775 ml Balance 355 ml 240 ml 775 ml medications Current Medications Medications Dose Ordered Sig/Cathy Route Start Time Stop Time Status Last Admin Dose Admin Acetaminophen/ Hydrocodone Bitart 1 tab Q4HP PRN PO 09/25/24 18:00 09/27/24 09:26 1 TAB Ondansetron HCl 4 mg Q4HP PRN IV 09/25/24 18:00 Acetaminophen 650 mg Q6HP PRN PO 09/25/24 18:00 Enoxaparin Sodium 40 mg DAILY SC 09/26/24 10:00 09/28/24 10:28 40 MG Nitroglycerin 0.4 mg Q5MINP PRN SL 09/25/24 18:00 Morphine Sulfate 2 mg Q30M PRN IV 09/25/24 18:00 Hydralazine HCl 10 mg Q6HP PRN IV 09/25/24 18:00 Aspirin 81 mg DAILY PO 09/26/24 10:00 09/28/24 10:28 81 MG Atorvastatin Calcium 40 mg HS PO 09/26/24 22:00 09/27/24 21:04 40 MG Amlodipine Besylate 5 mg DAILY PO 09/27/24 10:00 09/28/24 10:28 5 MG Gabapentin 300 mg BIDPRN PRN PO 09/26/24 12:30 Mirtazapine 15 mg QPM PO 09/26/24 18:00 09/27/24 18:00 15 MG Quetiapine Fumarate 25 mg QHSP PRN PO 09/26/24 12:30 09/27/24 21:05 25 MG Patient Own Medication 1 tab BID PO 09/26/24 22:00 09/28/24 10:28 1 TAB Thiamine HCl 100 mg DAILY IV 09/27/24 10:00 09/28/24 10:29 100 MG Folic Acid 1 mg/ Dextrose 50.2 ml @ 200.8 mls/ hr DAILY INJ 09/27/24 10:00 09/28/24 13:40 200.8 MLS/HR Carvedilol 3.125 mg BID PO 09/28/24 10:00 09/28/24 10:27 3.125 MG Examination: GENERAL:Abnormal, CVS:Normal, SKIN:Normal laboratory and microbiology Laboratory Tests 09/28/24 07:35 09/26/24 05:35 Test 09/28/24 07:35 Range/Units Serum Glucose 126 H 74-106 mg/dL Problem List/Assessment/Plan Problem List/Assessment/Plan 68-year-old female past medical history of hypertension presents to the hospital with a near syncopal episode was diagnosed with hyponatremia. Patient notably also has bradycardia with heart rate in the 50s. Clinically patient appears to be hypo to euvolemic. Hyponatremia History of hypertension Questionable history of congestive heart failure Na improving Encourage p.o. Cardiology Avoid hypotension No further use of thiazide diuretic in this patient recommend alternative agents. consider loop diuretic and salt tab on followup if persist rec renal clinic and PCP clinic for followup Plan discussed with: Patient FER GARCIA MD Sep 28, 2024 15:46
[2024-09-28] MEDS ORDERED: FURO20TA4 PO (16:09)
[2024-09-28] MEDS ORDERED: SODI1TAB2 PO (16:09)
--- NOTE | 2024-09-29 13:07 | ECG ---
[facility] Test Date: 2024-09-25 Test Time: 14:37:14 Pat Name: CHRISTIN DE [facility] Gender: F Employment Programs Analyst: BELLE : 1955 Requested By: AMBROCIO JACBOSON Order Number: [id number] Reading MD: vIan Myers Measurements Intervals [place] Rate: 59 P: 79 NH: 191 QRS: 90 QRSD: 102 T: 71 QT: 457 QTc: 453 Interpretive Statements Sinus rhythm Biatrial enlargement Anteroseptal infarct, age indeterminate Electronically Signed On 09-30-2024 17:26:47 PDT by Ivan Myers Please click the below link to view image of tracing.
== END 2024-09-28 16:30 | disposition home or self-care (01) | DRG 101 ==
LOC: ER 14:14 → OVERFLOW 17:56 → TELE-WESTW 21:14
PROVIDERS: ADMIT Nurse Practitioner; ATTEND Nurse Practitioner
DX: R56.9 Unspecified convulsions (principal); E87.1 Hypo-osmolality and hyponatremia; G37.2 Central pontine myelinolysis; F10.139 Alcohol abuse with withdrawal, unspecified; G93.89 Other specified disorders of brain; E86.0 Dehydration; G89.29 Other chronic pain; R00.1 Bradycardia, unspecified; Y90.9 Presence of alcohol in blood, level not specified; I44.1 Atrioventricular block, second degree; Z79.899 Other long term (current) drug therapy; Z88.0 Allergy status to penicillin; Z91.041 Radiographic dye allergy status; Z80.8 Family history of malignant neoplasm of other organs or systems; Z82.49 Family history of ischemic heart disease and other diseases of the circulatory system; Z79.82 Long term (current) use of aspirin; Z86.73 Personal history of transient ischemic attack (TIA), and cerebral infarction without residual deficits; I25.2 Old myocardial infarction
CPT/HCPCS: 36415; 70450; 70551; 71045; 80048; 80053; 80061; 81001; 82570; 83605; 83735; 83930; 83935; 84300; 84443; 84484; 85025; 85610; 85652; 85730; 86141; 93005; 93306; 93886; 95819; 99291; G0378; J7060